=== PATIENT | male | born 1950 | race Caucasian/White ===

== ENCOUNTER 2023-05-19 08:10 | Outpatient (OUT) | payer MEDICARE, OTHER, SELFPAY ==
[2023-05-19 08:53] LABS: Basophils Percent Auto 0.6 % (0.2-2.0); Eosinophils Absolute Auto 0.2 10^3/uL (0.0-0.7); Eosinophils Percent Auto 4.2 % (0.9-7.0); Hematocrit 41.4 % (42.0-54.0); Hemoglobin 14.7 g/dL (14.0-18.0); Immature Granulocytes Abs Auto 0.03 10^3/uL (0.00-0.03); Immature Granulocytes Pct Auto 0.6 % (0.0-0.5); Lymphocytes Absolute Auto 1.4 10^3/uL (1.2-3.8); Lymphocytes Percent Auto 27.7 % (20.5-60.0); Mean Corpuscular HGB Conc 35.5 g/dL (29.9-35.2); Mean Corpuscular Hemoglobin 30.6 pg (25.9-34.0); Mean Corpuscular Volume 86.3 fL (80.0-94.0); Mean Platelet Volume 9.7 fL (9.5-13.5); Monocytes Absolute Auto 0.4 10^3/uL (0.3-0.8); Monocytes Percent Auto 8.9 % (1.7-12.0); Neutrophils Absolute Auto 2.9 10^3/uL (1.4-6.5); Platelet Count 171 10^3/uL (150-450); Red Cell Distribution Width 13.1 % (11.0-15.0)
[2023-05-19 09:28] LABS: Microalbumin Urine Random <1.3 mg/dL (<=30.0)
[2023-05-19 09:31] LABS: Alanine Aminotransferase 53 U/L (16-63); Anion Gap 12.6; BUN Creatinine Ratio 15.6; Carbon Dioxide 25.6 mmol/L (21.0-32.0); Chloride 102 mmol/L (98-107); Chol HDL Ratio 3.2; Cholesterol 193 mg/dL (<=200); Estimated GFR (African America >60 (>=60); Estimated GFR (Non-African Ame >60 (>=60); Glucose 151 mg/dL (74-106); HDL Cholesterol 60 mg/dL (40-60); Potassium 4.2 mmol/L (3.5-5.1); Sodium 136 mmol/L (136-145); Triglycerides 177 mg/dL (<=150); VLDL CHOLESTEROL 35.4 mg/dL
[2023-05-19 09:35] LABS: Estimated Average Glucose 140 mg/dL; Glycohemoglobin A1C 6.5 % (4.5-6.2)
[2023-05-19 09:52] LABS: Prostate Specific Antigen Scrn 2.43 ng/mL (<=4.00)
== END 2023-05-19 08:11 | disposition home or self-care (01) ==
PROVIDERS: PCP Internal Medicine; Visit Provider Internal Medicine
DX: Z79.899 Other long term (current) drug therapy (principal); E11.9 Type 2 diabetes mellitus without complications; I10 Essential (primary) hypertension; E78.01 Familial hypercholesterolemia; Z12.5 Encounter for screening for malignant neoplasm of prostate
CPT/HCPCS: 36415; 80048; 80061; 82043; 83036; 84460; 85025; G0103

== ENCOUNTER 2023-08-18 08:28 | Outpatient (OUT) | payer MEDICARE, OTHER, SELFPAY ==
[2023-08-18 09:29] LABS: Anion Gap 10.7; BUN Creatinine Ratio 16.5; Calcium 8.6 mg/dL (8.5-10.1); Carbon Dioxide 30.4 mmol/L (21.0-32.0); Chloride 99 mmol/L (98-107); Estimated GFR (African America >60 (>=60); Estimated GFR (Non-African Ame >60 (>=60); Glucose 196 mg/dL (74-106); Potassium 4.1 mmol/L (3.5-5.1); Sodium 136 mmol/L (136-145)
== END 2023-08-18 08:29 | disposition home or self-care (01) ==
LOC: LAB 08:29
PROVIDERS: PCP Internal Medicine; Visit Provider Internal Medicine
DX: I10 Essential (primary) hypertension (principal)
CPT/HCPCS: 36415; 80048

== ENCOUNTER 2024-01-30 13:56 | Outpatient (OUT) | payer OTHER, SELFPAY | END 2024-01-30 13:57 | disposition home or self-care (01) | LOC: MN 14:00 | PROVIDERS: PCP Internal Medicine | DX: E11.8 Type 2 diabetes mellitus with unspecified complications (principal) | CPT/HCPCS: G0108 ==

== ENCOUNTER 2024-06-26 08:37 | Outpatient (OUT) | payer OTHER, SELFPAY ==
--- OUTSIDE RECORDS SUMMARY | 2024-06-26 08:41 | XMS_ITS | CCD ---
Author Organization [facility] Care Team Providers Care Turner In Name Role Phone REQUEST, DR RICK LISTED Admitting Unavaila ble REQUEST, DR RICK LISTED Attending Unavaila ble REQUEST, DR RICK LISTED Consulting Unavaila ble FORTINO, DR HORVATH Admitting Unavailable FORTINO, DR HORVATH Attending Unavailable FORTINO, DR HORVATH Primary Care Unavailable FORTINO, DR HORVATH Consulting Unavailable Frank Freitas Unavailable Paloma, Immariam Unavailable DAMON BADILLO Referring Unavailable DAMON BADILLO Primary Care Unavailable DO Frank Freitas Primary Care Provider MD Paloma Immariam Attending Provider Frank Freitas Primary Care Unavailable Asaad, Immariam Attending Unavailable Asaad, Imad Admitting Unavailable Madonna BUCHANAN Attending Unavailable Allergies Allergy Classification Reported Allergen(s) Allergy Type Date of Onset Reaction(s) Facility (1 source) ALLERGIES NOT ON FILE; Translations: [ALLERGIES NOT ON FILE] Propensity to adverse reactions (disorder) [facility] Repository (1 source) Bacitracin; Translations: [bacitracin] Drug Allergy [facility] Repository (1 source) Bee/Wasp/Ant venom; Translations: [Bee Stings] Propensity to adverse reactions (disorder) [facility] Repository Medications Current Medications Medication Drug Class(es) Dates Sig (Normalized) Sig (Original) amLODIPine 5 mg / benazepril hydrochloride 40 mg oral capsule (12 sources) Dihydropyridine Calcium Channel Petros, Angiotensin Converting Enzyme Inhibitor Start: 07-30-2023 take 1 capsule by mouth once daily Amlodipine-Benaze pril Active 1 CAP PO Daily July 30, 2023 12:00am atorvastatin 40 mg oral tablet (12 sources) HMG-CoA Reductase Inhibitor Start: 07-30-2023 take 40 mg by mouth once daily Atorvastatin Active 40 MG PO Daily July 30, 2023 12:00am gabapentin 300 mg oral capsule (12 sources) Anti-epileptic Agent Start: 07-30-2023 take 300 mg by mouth twice daily Gabapentin Active 300 MG PO Twice daily July 30, 2023 12:00am Start: 12-27-2022 take 1 capsule by [facility] every six hours Gabapentin 300 MG 1 capsule Orally qid Dec, Active hydroCHLOROthiazide 25 mg oral tablet (5 sources) Thiazide Diuretic Start: 07-25-2023 take 1 tablet by mouth every twenty-four hours hydroCHLOROthiazide 25 MG 1 tablet in the morning Orally Once a day for 30 days Jul, Active polyethylene glycol 3350 239300 mg / potassium chloride 2970 mg / sodium bicarbonate 6740 mg / sodium chloride 5860 mg / sodium sulfate 16741 mg powder for oral solution (7 sources) Osmotic Laxative Start: 06-28-2023 take 236 g by mouth once daily Golytely 236 GM as directed Orally once daily for 1 days Jun, Active 72 hr scopolamine 0.0139 mg/hr transdermal system (11 sources) Anticholinergic Start: 12-11-2022 Transderm-Scop 1 MG/3DAYS 1 patch to skin behind the ear as needed Transdermal every 72 hours for 7 days Dec, Active Completed/Discontinued Medications Medication Drug Class(es) Dates Sig (Normalized) Sig (Original) meloxicam 15 mg oral tablet (11 sources) Nonsteroidal Anti-inflammatory Drug Meloxicam 15 MG TAKE 1 TABLET DAILY Not-Taking/PRN Suprep Bowel Prep Kit 17.5-3.13-1.6 GM/180ML (11 sources) Start: 02-21-2018 Suprep Bowel Prep Kit 17.5-3.13-1.6 GM/180ML 1 bottle AT 4 PM AND ONE BOTTLE AT 11 PM DAY PRIOR TO COLONOSCOPY Orally Twice a day for 1 day(s) February, Not-Taking/PRN Start: 02-21-2018 Suprep Bowel P rep Kit 17.5-3.13-1.6 GM/180ML 1 bottle AT 4 PM AND ONE BOTTLE AT 11 PM DAY PRIOR TO COLONOSCOPY Orally Twice a day for 1 day(s) February, Not-Taking Problems Problem Classification Problem Date Documented Da te Episodic/Chronic Aortic; peripheral; and visceral artery aneurysms (5 sources) Ascending aorta dilatation; Translations: [Thoracic aortic ectasia] Chronic Diabetes mellitus with complications (15 sources) Type 2 diabetes mellitus; Translations: [Type 2 diabetes mellitus with hyperglycemia] Onset: 07-07-2023 Chronic Diabetes mellitus without complication (12 sources) Type 2 diabetes mellitus without complications; Translations: [Type 2 diabetes mellitus without complication] Onset: 05-15-2022 Chronic Disorders of lipid metabolism (20 sources) Familial hypercholesterolemi a; Translations: [Familial hypercholesterolemi a] Onset: 05-13-2022 Chronic Essential hypertension (20 sources) Essential (primary) hypertension; Translations: [Essential hypertension] Onset: 05-15-2022 Chronic Other nervous system disorders (11 sources) Polyneuropathy; Translations: [Polyneuropathy, unspecified] Chronic Other nervous system disorders (2 sources) Polyneuropathy, unspecified Chronic Other nutritional; endocrine; and metabolic disorders (2 sources) Overweight Episodic Other screening for suspected conditions (not mental disorders or infectious disease) (16 sources) Encounter for screening for malignant neoplasm of prostate; Translations: [Encounter for screening for malignant neoplasm of colon] Onset: 05-15-2022 Episodic Unclassified (1 source) Encounter for screening for malignant neoplasm of colon; Translations: [Encounter for screening for malignant neoplasm of colon] Onset: 07-30-2023 Results Test Name Value Interpretation Reference Range Facility CT CARDIAC SCORING WO IV CON TRASTon 07-07-2023 CT CARDIAC SCORING WO IV CONTRAST Interpreted By: Mp Wilcox, ADDENDUM: NON-CARDIOVASCULAR FINDINGS INCLUDED LUNGS, AIRWAYS AND PLEURA Endotracheal / endobronchial lesion: Negative Nodule: Negative Airspace disease: Negative Pleural effusion: Negative Pneumothorax: Negative Other: No acute or contributory unanticipated findings INCLUDED NON-CARDIOVASCULAR ALISHA AND MEDIASTINUM Adenopathy: Negative Included esophagus: Unremarkable Other: No acute or contributory unanticipated findings INCLUDED BONES: No acute skeletal findings, noting less sensitivity and specificity without dedicated sagittal and coronal reformatted series. INCLUDED CHEST WALL No acute or contributory unanticipated findings INCLUDED UPPER ABDOMEN Borderline to mild fatty metamorphosis of the liver ------- NON-CARDIOVASCULAR IMPRESSION Borderline to mild fatty metamorphosis of the liver NOTE THIS ADDENDUM IS SOLELY FOR INTERPRETATION OF ANATOMY OUTSIDE THE CARDIOVASCULAR SYSTEM. INTERPRETATION OF AND REPORTING OF THE CARDIOVASCULAR STRUCTURES ARE THE SOLE RESPONSIBILITY OF THE DRAMATIC READER SUBMITTING THE ORIGINAL REPORT (NOT THIS ADDENDUM) Signed by: Mp Molinatrev 07/13/2023 1:22 PM -------- ORIGINAL REPORT -------- Dictation workstation: [id number] Interpreted By: Freeman Vo, STUDY: CT CARDIAC SCORING WO IV CONTRAST; 07/07/2023 11:28 am INDICATION: Signs/Symptoms:HYPE RTENSION. COMPARISON: None. ACCESSION NUMBER(S): [id number] ORDERING CLINICIAN: FRANK FREITAS TECHNIQUE: Using prospective ECG gating, CT scan of the coronary arteries was performed without intravenous contrast. Coronary calcium scoring was performed according to the method of Agatston. CT Dose-Length Product (DLP): 51.4 mGy*cm CT Dose Reduction Employed: Yes, prospective gating, iterative reconstruction. FINDINGS: The score and distribution of calcium in the coronary arteries is as follows: LM 0 LAD 729 LCx 0 RCA 339 Total 1068 The visualized ascending thoracic aorta measures 4.2 cm in diameter. The heart is normal in size. No pericardial effusion is present. Mitral annular calcification. The main pulmonary artery, right and left pulmonary artery are normal in size. IMPRESSION: 1. Coronary artery calcium score of 1068*. 2. GALEANO 79th percentile for age, gender, and race in asymptomatic patients. 3. Dilated ascending thoracic aorta 4.2 cm. *Coronary Artery Agatston score Score risk Very low 1-99 Mildly increased 100-299 Moderately increased >300 Moderate to severely increased >800 John et al. JCCT 2016 (http://dx.doi.org/ 10.1016/j.jcct.2016 .11.003) GALEANO Percentile In general, greater than 75th percentile for age, gender, and race is considered to be a higher relative risk and higher lifetime risk condition. Greater than 75th percentile=moderate to severely increased relative risk irrespective of the score. Advise using GALEANO 10 year CHD risk calculator below for better discrimination of risk. GALEANO 10-Year CHD Risk with Coronary Artery Calcification can be calcuate using link below [email or web address]-wv [email or web address]/MESACHDRisk /MesaRiskScore/Risk Score.aspx Haydee aranda al. JACC 2015 (http://dx.doi.org/ 10.1016/j.j acc.2015.08.035) Reading Business Continuity Manager: Dr. Freeman Vo, Date: 07/10/2023 12:28 pm Signed by: Freeman Vo 07/10/2023 12:29 PM Dictation workstation: [id number] [facility] Comment on above: Order Comment: PT WI LL BRING ORDER TO VISIT CBC AUTO DIFFon 05-13-2022 BASO # 0.0 103/ul Normal 0.0-0.1 [facility] Comment on above: Performed By: #### C BC #### [facility] [address] [address] [address] David Lewis Basophils/100 WBC (Bld) 0.6 % Normal 0.2-2.0 [facility] Comment on above: Performed By: #### C BC #### [facility] [address] [address] [address] David Lewis EO # 0.3 103/ul Normal 0.0-0.7 [facility] Comment on above: Performed By: #### C BC #### [facility] [address] [address] [address] David Lewis Eosinophils/100 WBC (Bld) 4.9 % Normal 0.9-7.0 [facility] Comment on above: Performed By: #### C BC #### [facility] [address] [address] [address] David Lewis Erythrocyte distribution width (RBC) [Ratio] 12.9 % Normal 11.0-15.0 [facility] Comment on above: Performed By: #### C BC #### [facility] [address] [address] [address] David Lewis Hematocrit (Bld) [Volume fraction] 39.5 % Critically low 42.0-54.0 [facility] Comment on above: Performed By: #### C BC #### [facility] [address] [address] [address] David Lewis Hemoglobin (Bld) [Mass/Vol] 13.5 g/dL Critically low 14.0-18.0 [facility] Comment on above: Performed By: #### C BC #### [facility] [address] [place] [address] Dr. David Lewis IG # 0.02 10e3/ul Normal 0.00-0.03 [facility] Comment on above: Performed By: #### C BC #### [facility] [address] [place] [address] Dr. David Lewis IG % 0.4 % Normal 0.0-0.5 [facility] Comment on above: Performed By: #### C BC #### [facility] [address] [place] [address] Dr. David Lewis LYMPH # 1.3 103/ul Normal 1.2-3.8 [facility] Comment on above: Performed By: #### C BC #### [facility] [address] [place] [address] Dr. David Lewis Lymphocytes/100 WBC (Bld) 24.8 % Normal 20.5-60.0 [facility] Comment on above: Performed By: #### C BC #### [facility] [address] [place] [address] Dr. David Lewis MANUAL DIFF REQ NO Normal [facility] Comment on above: Performed By: #### C BC #### [facility] [address] [place] [address] Dr. David Lewis MCH (RBC) [Entitic mass] 30.5 pg Normal 25.9-34.0 [facility] Comment on above: Performed By: #### C BC #### [facility] [address] [place] [address] Dr. David Lewis MCHC (RBC) [Mass/Vol] 34.2 g/dL Normal 29.9-35.2 [facility] Comment on above: Performed By: #### C BC #### [facility] [address] [place] [address] Dr. David Lewis MCV (RBC) [Entitic vol] 89.2 fL Normal 80.0-94.0 [facility] Comment on above: Performed By: #### C BC #### [facility] [address] [place], [place] [id number] Dr. David Lewis MONO # 0.4 103/ul Normal 0.3-0.8 [facility] Comment on above: Performed By: #### C BC #### [facility] [address] [place] [address] Dr. David Lewis Monocytes/100 WBC (Bld) 8.5 % Normal 1.7-12.0 [facility] Comment on above: Performed By: #### C BC #### [facility] [address] [place] [address] Dr. David Lewis NEUT # 3.1 103/ul Normal 1.4-6.5 [facility] Comment on above: Performed By: #### C BC #### [facility] [address] [place] [address] Dr. David Lewis Neutrophils/100 WBC (Bld) 60.8 % Normal 43.0-75.0 [facility] Comment on above: Performed By: #### C BC #### [facility] [address] [place] [address] Dr. David Lewis Platelet mean volume (Bld) [Entitic vol] 9.8 fL Normal 9.5-13.5 [facility] Comment on above: Performed By: #### C BC #### [facility] [address] [place] [address] Dr. David Lewis PLT 156 103/ul Normal 150-450 [facility] Comment on above: Performed By: #### C BC #### [facility] [address] [place] [address] Dr. David Lewis RBC 4.43 106/ul Critically low 4.70-6.10 [facility] Comment on above: Performed By: #### C BC #### [facility] [address] [place] [address] Dr. David Lewis WBC 5.1 103/ul Normal 4.0-11.0 [facility] Comment on above: Performed By: #### C BC #### [facility] [address] [place] [address] Dr. David Lewis GLYCOHEMOGLOBIN A1Con 2021 ADA RECOMMENDATION SEE BELOW Normal [facility] Comment on above: Result Comment: ADA RECOMMENDED LIMIT 4.0 - 6.0 ADA THERAPEUTIC TARGET < 7.0 ACTION SUGGESTED > 7.0 Performed By: #### A 1C #### [facility] [address] [place] [address] Dr. David Lewis Glucose [Mass/Vol] 128 mg/dL Normal [facility] Comment on above: Performed By: #### A 1C #### [facility] [address] [address] [address] David Lewis HbA1c (Bld) [Mass fraction] 6.1 % Normal 4.5-6.2 [facility] Comment on above: Performed By: #### A 1C #### [facility] [address] [place] [address] Dr. David Lewis LIPID PROFILEon 05-13-2022 CHOL-HDL RATIO NORM SEE BELOW Normal [facility] Comment on above: Result Comment: 3.3 - 4.4 LOW RISK 4.4 - 7.1 AVERAGE RISK 7.1 - 11.0 MODERATE RISK >11.0 HIGH RISK Performed By: #### B MP, LIPID, ALT #### [facility] [address] [place] [address] Dr. David Lewis Cholesterol [Mass/Vol] 145 mg/dL Normal <=200 [facility] Comment on above: Performed By: #### B MP, LIPID, ALT #### [facility] [address] [address] [address] David Lewis Cholesterol in HDL [Mass/Vol] 48 mg/dL Normal 40-60 [facility] Comment on above: Performed By: #### B MP, LIPID, ALT #### [facility] [address] [address] [address] David Lewis Cholesterol in LDL [Mass/Vol] 78.2 mg/dL Normal [facility] Comment on above: Performed By: #### B MP, LIPID, ALT #### [facility] [address] [place] [address] Dr. David Lewis Cholesterol.total/Cho lesterol in HDL [Mass ratio] 3.0 {ratio} Normal [facility] Comment on above: Performed By: #### B MP, LIPID, ALT #### [facility] [address] [place] [address] Dr. David Lewis HDL NORMAL > or = 60 mg/dl - LOW CARDIOVASCULAR RISK <40 mg/dl - HIGH CARDIOVASCULAR RISK Normal [facility] Comment on above: Performed By: #### B MP, LIPID, ALT #### [facility] [address] [place] [address] Dr. David Lewis LDL CALC NORMAL SEE BELOW Normal [facility] Comment on above: Result Comment: <100 mg/dl OPTIMAL 100 - 129 mg/dl NEAR OR ABOVE OPTIMAL 130 - 159 mg/dl BORDERLINE HIGH 160 - 189 mg/dl HIGH >190 mg/dl VERY HIGH Performed By: #### B MP, LIPID, ALT #### [facility] [address] [place] [address] Dr. David Lewis Triglyceride [Mass/Vol] 94 mg/dL Normal <=150 [facility] Comment on above: Performed By: #### B MP, LIPID, ALT #### [facility] [address] [place] [address] Dr. David Lewis VLDL CALC 18.8 mg/dL Normal [facility] Comment on above: Performed By: #### B MP, LIPID, ALT #### [facility] [address] [place] [address] Dr. David Lewis MICROALBUMIN, RAND URon 08-0 mALB <1.3 Normal <=30.0 [facility] Comment on above: Performed By: #### M ALBR #### [facility] [address] [place] [address] Dr. David Lewis PROF CHEM 8 (BAS METB)on Anion gap [Moles/Vol] 12.3 mmol/L Normal [facility] Comment on above: Performed By: #### B MP, LIPID, ALT #### [facility] [address] [place] [address] Dr. David Lewis Calcium [Mass/Vol] 8.7 mg/dL Normal 8.5-10.1 [facility] Comment on above: Performed By: #### B MP, LIPID, ALT #### [facility] [address] [address] [address] David Lewis Chloride [Moles/Vol] 105 mmol/L Normal 98-107 [facility] Comment on above: Performed By: #### B MP, LIPID, ALT #### [facility] [address] [address] [address] David Lewis CO2 [Moles/Vol] 28.1 mmol/L Normal 21.0-32.0 [facility] Comment on above: Performed By: #### B MP, LIPID, ALT #### [facility] [address] [place] [address] Dr. David Lewis Creatinine [Mass/Vol] 0.92 mg/dL Normal 0.70-1.30 [facility] Comment on above: Performed By: #### B MP, LIPID, ALT #### [facility] [address] [address] [address] David Lewis EGFR-AF JORDANIAN >60 Normal >=60 [facility] Comment on above: Performed By: #### B MP, LIPID, ALT #### [facility] [address] [place] [address] Dr. David Lewis EGFR-NON AF JORDANIAN >60 Normal >=60 [facility] Comment on above: Performed By: #### B MP, LIPID, ALT #### [facility] [address] [address] [address] David Lewis Glucose [Mass/Vol] 138 mg/dL Critically high 74-106 [facility] Comment on above: Performed By: #### B MP, LIPID, ALT #### [facility] [address] [address] [address] David Lewis Potassium [Moles/Vol] 4.4 mmol/L Normal 3.5-5.1 [facility] Comment on above: Performed By: #### B MP, LIPID, ALT #### [facility] [address] [address] [address] David Lewis Sodium [Moles/Vol] 141 mmol/L Normal 136-145 [facility] Comment on above: Performed By: #### B MP, LIPID, ALT #### [facility] [address] [place] [address] Dr. David Lewis Urea nitrogen [Mass/Vol] 18.0 mg/dL Normal 7.0-18.0 [facility] Comment on above: Performed By: #### B MP, LIPID, ALT #### [facility] [address] [place] [address] Dr. David Lewis Urea nitrogen/Creatinine [Mass ratio] 19.6 mg/mg Normal [facility] Comment on above: Performed By: #### B MP, LIPID, ALT #### [facility] [address] [place] [address] Dr. David Lewis [facility] 05-13-2022 ALT [Catalytic activity/Vol] 34 U/L Normal 16-63 [facility] Comment on above: Performed By: #### B MP, LIPID, ALT #### [facility] [address] [place] [address] Dr. David Lewis GLYCOHEMOGLOBIN A1Con 2020 ADA RECOMMENDATION ADA THERAPEUTIC TARGET 6.0 - 7.0 ACTION SUGGESTED > 7.0 Normal [facility] Comment on above: Performed By: #### D ATA1C #### [facility] [address] [place] [address] Dr. David Lewis Glucose [Mass/Vol] 123 mg/dL Normal [facility] Comment on above: Performed By: #### D ATA1C #### [facility] [address] [place] [address] Dr. David Lewis HbA1c (Bld) [Mass fraction] 5.9 % Normal <=6.0 [facility] Comment on above: Performed By: #### D ATA1C #### [facility] [address] [place] [address] Dr. David Lewis Vital Signs Date Time Vital Sign Value Performing Clinician Facility 07-30-2023 12:30-0400 Diastolic blood pressure 91 mm[Hg] DO Frank Freitas Work Phone: [facility] 07-30-2023 12:30-0400 Heart rate 76 /min DO Frank Ball Work Phone: [facility] 07-30-2023 12:30-0400 Respiratory rate 16 /min DO Frank Ball Work Phone: [facility] 07-30-2023 12:30-0400 SaO2% (BldA) [Mass fraction] 97 % DO Frank Ball Work Phone: [facility] 07-30-2023 12:30-0400 Systolic blood pressure 168 mm[Hg] DO Frank Ball Work Phone: [facility] 07-30-2023 11:15-0400 Body height 187.96 cm DO Frank Ball Work Phone: [facility] 07-30-2023 11:15-0400 Body weight 99.79 kg DO Frank Ball Work Phone: [facility] 07-25-2023 09:30-0400 Body height 190.5 cm Frank Ball Other [facility] Other 07-25-2023 09:30-0400 Body mass index (BMI) [Ratio] 29.69 kg/m2 Frank Ball Other [facility] Other 07-25-2023 09:30-0400 Body weight 107.78 kg Frank Ball Other [facility] Other 07-25-2023 09:30-0400 Diastolic blood pressure 84 mm[Hg] Frank Ball Other [facility] Other 07-25-2023 09:30-0400 Respiratory rate 12 /min Frank Ball Other [facility] Other 07-25-2023 09:30-0400 Systolic blood pressure 152 mm[Hg] Frakn Ball Other [facility] Other 05-30-2023 09:30-0400 Body height 190.5 cm Frank Ball Other [facility] Other 05-30-2023 09:30-0400 Body mass index (BMI) [Ratio] 29.57 kg/m2 Frank Ball Other [facility] Other 05-30-2023 09:30-0400 Body weight 107.32 kg Frank Ball Other [facility] Other 05-30-2023 09:30-0400 Diastolic blood pressure 89 mm[Hg] Frank Ball Other [facility] Other 05-30-2023 09:30-0400 Respiratory rate 12 /min Frank Ball Other [facility] Other 05-30-2023 09:30-0400 Systolic blood pressure 167 mm[Hg] Frank Ball Other [facility] Other Encounters Encounter Date Encounter Type Care Provider Facility Start: 06-17-2024 End: 06-17-2024 ambulatory Madonna Sommer DEWAYNE Facility:[facility] Start: 10-26-2023 End: 10-26-2023 ambulatory Frank Ball Other [facility] Other Start: 10-26-2023 Telephone encounter Frank Ball [facility] Start: 08-20-2023 End: 08-20-2023 ambulatory Frank Ball Other [facility] Other Start: 08-20-2023 Telephone encounter Frank Ball [facility] Start: 07-31-2023 End: 07-31-2023 ambulatory Frank Ball Other [facility] Other Start: 07-31-2023 Telephone encounter Frank Ball [facility] Start: 07-30-2023 End: 07-30-2023 ambulatory Frank Ball Facility:[facility] Start: 07-30-2023 End: 07-30-2023 Admission to same day surgery center DO Frank Freitas Work Phone: [facility] [facility] Work Phone: Start: 07-30-2023 End: 07-30-2023 ambulatory DO Frank Freitas Work Phone: [facility] Work Phone: Start: 07-25-2023 End: 07-25-2023 ambulatory Frank Freitas Other [facility] Other Start: 07-25-2023 Office outpatient vi sit 15 minutes Frank Freitas [facility] Start: 07-12-2023 End: 07-12-2023 ambulatory Frank Freitas Other [facility] Other Start: 07-12-2023 Telephone encounter Frank Freitas [facility] Start: 07-07-2023 End: 07-08-2023 ambulatory [facility] Start: 06-28-2023 End: 06-28-2023 ambulatory Frank Freitas Other [facility] Other Start: 06-28-2023 Telephone encounter Frank Freitas [facility] Start: 06-27-2023 End: 06-27-2023 ambulatory Imad Asaad Other [facility] Other Start: 06-27-2023 Telephone encounter Imad Asaad [facility] Start: 06-18-2023 End: 06-18-2023 ambulatory Frank Freitas Other [facility] Other Start: 06-18-2023 Telephone encounter Frank Freitas [facility] Start: 05-30-2023 End: 05-30-2023 ambulatory Frank Ball Other [facility] Other Start: 05-30-2023 Patient encounter procedure Frank Freitas [facility] Start: 05-30-2023 Telephone encounter Frank Freiats [facility] Start: 05-13-2022 End: 05-14-[address] FRANK FREITAS Facility:[facility] Start: 09-08-2021 End: 09-09-[address] RICK LISTED REQUEST Facility:[facility] Procedures Date Procedure Procedure Detail Performing Clinician Start: 07-30-2023 Screening colonoscopy D O Frank Freitas Work Phone: Start: 07-07-2023 CT CARDIAC SCORING W O IV CONTRAST DAMON BADILLO Start: 05-13-[address] RICK L ISTED REQUEST Comment on above: Performed By: #### P [facility] #### [facility] [address] [place] [address] Dr. David Lewis Plan of Treatment Date Care Activity Detail Author Start: 07-30-2023 [facility] Patient Education Hemorrhoids (D C) Diverticulosis (DC) [facility] Work Phone: Immunizations Immunization Date Immunization Notes Care Provider Alejandra donaldson 02-02-2017 diphtheria, tetanus toxoids and acellular pertussis vaccine, unspecified formulation Frank Freitas Other [facility] Other 07-19-2016 zoster vaccine, live Rickerick Freitas Other [facility] Other 01-12-2016 diphtheria, tetanus toxoids and acellular pertussis vaccine, unspecified formulation Frank Freitas Other [facility] Other 01-12-2016 pneumococcal conjuga te vaccine, 13 valent Frank Freitas Other [facility] Other 11-04-2014 pneumococcal polysaccharide vaccine, 23 valent Frank Freitas Other [facility] Other Payers Date Payer Category Payer Unknown [id number] 1961 Medicare [id number] 1961 Self-pay 1959 Unknown [id number] 1950 Unknown [id number] 1950 Unknown [id number] Unknown [id number] [id number] Unknown [id number] Unknown [id number] Social History Date Type Detail Facility Sex Assigned At [facility] [place] Other Start: 07-30-2023 [facility] Start: 1950 Sex Assigned At Male F [facility] Goals Date Patient Goal Desired Activity /State Clinical Notes 05-30-2023 to 08-20-2023 Note Date & Type Note Facility 08-20-2023 Evaluation note Encounter Date Diagnosis Assessment Notes Aug, Primary hypertension (ICD-10 - I10) [facility] Other [id number] [facility]* Encounter Date Diagnosis Assessment Notes Treatment Notes Treatment Clinical Notes Jul, Ascending aorta dilatation (ICD-10 - I77.810) Control BP Continue statin and start ASA Yearly CTA vs Echo Jul, Primary hypertension (ICD-10 - I10) This patient is instructed to consume a healthy, low-fat, low-salt diet. They are also encouraged to continue exercise to achieve/maintain a normal BMI. Patient is instructed on home BP measurements: - rest for 5 minutes w/o talking- positioned w/ feet on floor and arm supported- average best 2/3 readings w/ goal < 135/85 _update office in couple weeks Adding HCTZ Jul, [place] coronary artery calcium score greater than 400 (ICD-10 - R93.1) High risk per CAC score and GALEANO risk formula Continue aggressive primary prevention measures. Discussed referral to Cardiology for opinion on results. He is asymptomatic and easily achieves work > 4METs [facility] Other 10-05-2023 Evaluation note* Encounter Date Diagnosis Assessment Notes Treatment Notes Treatment Clinical Notes Jul, Primary hypertension (ICD-10 - I10) [facility] Other 08-23-2023 Evaluation note* Encounter Date Diagnosis Assessment Notes Treatment Notes Treatment Clinical Notes May, Medicare annual wellness visit, subsequent (ICD-10 - Z00.00) Personalized health advice was given to the beneficiary including a written plan for screenings discussed and provided. Advanced care planning reviewed and/or information given as requested. Additional counseling was provided here today in regards to, [ ]. The above visit was performed by [ ], under direct supervision of [ ]. Document reviewed and amended by provider signed below. May, Type 2 diabetes mellitus with hyperglycemia, without long-term current use of insulin (ICD-10 - E11.65) This patient is following a comprehensive diabetic treatment plan. They are checking their feet daily for calluses and nonhealing ulcers. They are being seen for yearly dilated eye examinations. Goals: SBP less than 130, LDL less than 100, FBS less than 140, AC and A1C less than 7%. They are checking their BS daily, will which are reviewed at the office visit. Continue regular routine monitoring of A1C,] Microalbumin, Dilated eye exam and Foot exam May, Mixed hyperlipidemia (ICD-10 - E78.2) Instructed on diet and exercise with continued statin therapy.Discussed the beneficial effects of lowering cholesterol in reducing the risk for cerebrovascular and cardiovascular disease. May, Primary hypertension (ICD-10 - I10) This patient is instructed to consume a healthy, low-fat, low-salt diet. They are also encouraged to continue exercise to achieve/maintain a normal BMI. Patient is instructed on home BP measurements: - rest for 5 minutes w/o talking- positioned w/ feet on floor and arm supported- average best 2/3 readings w/ goal < 135-85 May, Peripheral polyneuropathy (ICD-10 - G62.9) Inspect feet daily for cuts and calluses.Recommend diabetic shoes and inserts to prevent callus formation.Fall precautions. May, Overweight (ICD-10 - E66.3) This patient has been instructed on a low-fat, high-fiber diet. They are instructed to reduce calories, portion sizes and snacks. It is recommended that they exercise for 30 minutes, 3-5 times weekly. May, Screening PSA (prostate specific antigen) (ICD-10 - Z12.5) Yearly PSA - reviewed results - 2.4, which is < 4 and lower than last years results May, Screening for colon cancer (ICD-10 - Z12.11) Will review his previous scope. He was not aware that he needed this repeated [facility] Other Evaluation noteNo InformationNort [employer] Other Evaluation noteNo assessment information available [facility] Work Phone: History and physical note Author Latonya Dow [facility] July 30, 2023 11:27am Note Date/Time July 30, 2023 1 1:27am [facility] [address] [place] [address] Gastroenterology H&P Signed Patient: Anthony Longo MR#: [id number] : 1950 Acct:[id number] Age/Sex: 73 / M Adm Date: 3 Loc: Room: Type: [facility] Attending Dr: Latonya Dow MD Copies to: DO Latonya Tim MD~ Date of Service: 07/30/2023 HISTORY & PHYSICAL: Patient's history with special attention to the cardiovascular, pulmonary systems and the current problem was reviewed with the patient immediately prior to the procedure. Present medications and doses reviewed in the EMR. Allergies and pertinent laboratory tests were also reviewedat this time in the EMR. The physical examination, as below, was then performed. Indication, assessment and HPI: 73-year-old man with history of colonic polyps here for surveillance colonoscopy Family history of GI malignancy? No PHYSICAL EXAMINATION Mouth and Pharynx : Moist mucus membranes, normal dentition Cardiac: Regular rate, regular rhythm Pulmonary: Clear to auscultation bilaterally, no wheezing Neurological: Alert and oriented x3, no focal deficits noted Abdomen: Abdomen soft, non-tender REVIEW OF SYSTEMS Constitutional: Denies malaise, fevers Cardiovascular: Denies chest pain, palpitations Respiratory: Denies shortness of breath, wheezing Gastrointestinal: Per HPI Genitourinary: Denies dysuria, polyuria Musculoskeletal: Denies joint swelling, joint stiffness Neurological: Denies numbness, tingling Integumentary: Denies rashes, skin lesions Endocrine: Denies fatigue, weight loss Written informed consent obtained from the patient. Risks (including but not limited to perforation, infection, bloating, bleeding, need for emergent surgeryand loss of life), benefits and alternatives explained and questions answered. The patient verbalized understanding. Based on history patient is an appropriate candidate for the procedure. Latonya Dow M.D. Documented By: Latonya Dow MD 07/30/231125 Signed By: <Electronically signed by Latonya Dow MD> 07/30/23 1127 [facility] Work Phone: [facility] Narrative - Reported* Type Description Date Medical History Paresthesia Medical History Type 2 diabetes mellitus without complications Medical History Essential (primary) hypertension Medical History Hyperlipidemia type II Medical History Lumbar spondylosis Medical History Benign prostatic hyp erplasia with lower urinary tract symptoms Surgical History COLONOSCOPY 2017 Hospitalization History SEE SURGICAL [facility] Other History general Narrative - Reported* Type Description Date Medical History Paresthesia Medical History Type 2 diabetes mellitus without complications Medical History Essential (primary) hypertension Medical History Hyperlipidemia type II Medical History Lumbar spondylosis Medical History Benign prostatic hyp erplasia with lower urinary tract symptoms Surgical History COLONOSCOPY 2017 Surgical History Colonoscopy (repeat 5 years) Hospitalization History SEE SURGICAL [facility] Other Hospital Discharge instructions Additional Instructions DISCHARGE INSTRUCTIONS FOR COLONOSCOPY WHAT TO EXPECT: - You may feel full, gassy or cramping after your procedure. In some cases, this may be from a few hours to a day. Walking may help relieve the discomfort. - You should begin to recover from anesthesia within 1 hour of the procedure, however may feel groggy for the next 24 hours. DO's AND DON'Ts: - Call your doctor right away if you have a hard abdomen, severe pain, are passing lots of bright red blood or clots. - Call your doctor if you develop any rashes, hives or difficulty breathing. - Let your doctor know if you have not had a bowel movement by 3 days after your procedure. - If you take 81 mg aspirin for your heart it is safe to resume this medication. - If you take other blood thinner medications your doctor will instruct you when these can safely be resumed. - Do NOT drive for 24 hours. - Do NOT operate machinery such as power tools, lawn mowers, snow blowers, sewing machines, etc. for 24 hours. - Avoid alcoholic beverages and drugs for allergies, nerves, or sleep. - Do NOT stay alone. Do NOT leave your child unattended. - Do NOT make important personal or business decisions or sign any legal documents. - Eat solid foods and drink liquids in smaller amounts than usual until normal appetite returns. If you should experience an upset stomach, liquids high in sugar content (soda, Hugo-Aid, non-acid juices) are recommended. - You can resume normal activities tomorrow. FOLLOW UP & RECOMMENDATIONS: -Notify the doctor if you have any problems. -Repeat colonoscopy in 5 years. -Follow up with PCP. -Office number [phone]. [facility] Work Phone: Summary Purpose Family History No Family History Records Found Relationship Condition Age at Onset Recorded Date/T wesley father Cerebrovascular accident (CVA) Unknown Heart disease Unknown sister Malignant neoplasm of ovary Unknown brother Heart disease Unknown brother Malignant neoplasm of lung Unknown Advance Directives No Advanced Directives Records Found Advance Directive Response Recorded Date/ Time Advance Directives No January 31, 021 7:09am Reason for Referral Reason Mr. Longo is being ref erred for screening colonoscopy Diagnosis 1 Screening for colon cancer (Z12.11) Referral Organization [facility] Fortino ureña Referring Provider First Name Frank Referring Provider Last Name Fortino Referring Provider Specialty Internal Me dicine Referred Organization [facility] Referred Provider Arsalan Esteves Referred Address [address] [place], [place],[address] Referred Provider Specialty Gastroentero logy Referral Priority Routine General Notes Mr. Longo completed a screening colonoscopy w/ polypectomy in 2018. It was recommended that he have a repeat colonoscopy in 5 years. He denies change in appetite, weight or bowel habits. He denies heartburn, dysphagia, melena or hematochezia. Chief Complaint and Reason for Visit Chief Complaint Screening Additional Source Comments (unrecognized sect ion and content) No Status Records FoundNo Status Records FoundNo Status Records FoundNo Status Records Found INFORMATION SOURCE (unrecogn ized section and content) DATE CREATED AUTHOR 05/15/2022 [facility] DATE CREATED AUTHOR AUTHOR'S ORGANIZ ATION 07/13/2023 [facility] DATE CREATED AUTHOR AUTHOR'S ORGANIZ ATION 08/08/2023 [facility] DATE CREATED AUTHOR AUTHOR'S ORGANIZ ATION 06/18/2024 [facility] REASON FOR VISIT (unrecogniz ed section and content) WELLNESSColonoscopyWELLNESSN ew Ordermail ppwBP readingsRefilltest results discussionNo InformationRefillCruise Care Teams (unrecognized sec tion and content) Team Status: Active Member Role Status Dates Frank Freitas DO Primary Care Provider Active Team Status: Inactive Member Role Status Dates Frank Freitas DO Primary Care Provider Active Latonya Dow MD Attending Provider Active FOR RECORDS PERTAINING TO PATIENTS WHO ARE OR HAVE BEEN ENROLLED IN A CHEMICAL DEPENDENCY/SUBSTANCEABUSE PROGRAM, SOME INFORMATION MAY BE OMITTED. This clinical summary was aggregated from multiple sources. Caution should be exercised in using it in the provision of clinical care. This summary normalizes information from multiple sources, and as a consequence, information in this document may materially change the coding, format and clinical context of patient data. In addition, data may be omitted in some cases. CLINICAL DECISIONS SHOULD BE BASED ON THE PRIMARY CLINICAL RECORDS. [employer] provides no warranty or guarantee of the accuracy or completeness of information in this document.
[2024-06-26 08:55] LABS: Basophils Percent Auto 0.3 % (0.2-2.0); Eosinophils Absolute Auto 0.2 10^3/uL (0.0-0.7); Eosinophils Percent Auto 2.8 % (0.9-7.0); Hemoglobin 13.6 g/dL (14.0-18.0); Immature Granulocytes Abs Auto 0.02 10^3/uL (0.00-0.03); Immature Granulocytes Pct Auto 0.3 % (0.0-0.5); Lymphocytes Absolute Auto 1.5 10^3/uL (1.2-3.8); Lymphocytes Percent Auto 23.8 % (20.5-60.0); Mean Corpuscular HGB Conc 32.4 g/dL (29.9-35.2); Mean Corpuscular Hemoglobin 28.5 pg (25.9-34.0); Mean Corpuscular Volume 88.1 fL (80.0-94.0); Mean Platelet Volume 10.3 fL (9.5-13.5); Monocytes Absolute Auto 0.5 10^3/uL (0.3-0.8); Monocytes Percent Auto 8.4 % (1.7-12.0); Neutrophils Absolute Auto 4.2 10^3/uL (1.4-6.5); Neutrophils Percent Auto 64.4 % (43.0-75.0); Platelet Count 171 10^3/uL (150-450); Red Blood Count 4.77 10^6/uL (4.70-6.10); Red Cell Distribution Width 13.9 % (11.0-15.0); White Blood Count 6.5 10^3/uL (4.0-11.0)
[2024-06-26 09:12] LABS: Microalbumin Urine Random <1.3 mg/dL (<=30.0)
[2024-06-26 09:14] LABS: Estimated Average Glucose 117 mg/dL; Glycohemoglobin A1C 5.7 % (4.5-6.2)
[2024-06-26 09:53] LABS: Alanine Aminotransferase 28 U/L (16-63); Albumin Globulin Ratio 1.3; Alkaline Phosphatase 47 U/L (46-116); Anion Gap 11.4; Aspartate Amino Transferase 17 U/L (15-37); Bilirubin Total 0.7 mg/dL (0.2-1.0); Calcium 9.3 mg/dL (8.5-10.1); Carbon Dioxide 29.7 mmol/L (21.0-32.0); Chloride 100 mmol/L (98-107); Chol HDL Ratio 2.9; Cholesterol 139 mg/dL (<=200); Estimated GFR (African America >60 (>=60); Estimated GFR (Non-African Ame >60 (>=60); Globulin 3.2 g/dL; Glucose 121 mg/dL (74-106); HDL Cholesterol 48 mg/dL (40-60); LDL Cholesterol Calculated 68.2 mg/dL; Potassium 4.1 mmol/L (3.5-5.1); Sodium 137 mmol/L (136-145); Total Protein 7.2 g/dL (6.4-8.2); Triglycerides 114 mg/dL (<=150); VLDL CHOLESTEROL 22.8 mg/dL
[2024-06-26 10:05] LABS: Prostate Specific Antigen Scrn 2.22 ng/mL (<=4.00)
== END 2024-06-26 08:38 | disposition home or self-care (01) ==
LOC: LAB 08:37
PROVIDERS: PCP Internal Medicine; Visit Provider Internal Medicine
DX: E11.65 Type 2 diabetes mellitus with hyperglycemia (principal); R93.1 Abnormal findings on diagnostic imaging of heart and coronary circulation; E78.00 Pure hypercholesterolemia, unspecified; I10 Essential (primary) hypertension; Z12.5 Encounter for screening for malignant neoplasm of prostate
CPT/HCPCS: 36415; 80053; 80061; 82043; 83036; 85025; G0103

== ENCOUNTER 2024-07-04 13:32 | Outpatient (OUT) | payer OTHER, SELFPAY ==
--- OUTSIDE RECORDS SUMMARY | 2024-07-04 13:35 | XMS_ITS | CCD ---
Author Organization [facility] Care Team Providers Care Deicer Kit Assembler Name Role Phone REQUEST, DR RICK LISTED [...] Care Provider MD Paloma Immariam Attending Provider [phone] Frank Freitas Primary Care Unavailable Asaad, Immariam Attending Unavailable Asaad, Imad Admitting Unavailable Madonna BUCHANAN Attending Unavailable Allergies Allergy Classification Reported Allergen(s) Allergy Type Date of Onset Reaction(s) Facility (1 source) ALLERGIES NOT ON FILE; Translations: [ALLERGIES NOT ON FILE] Propensity to adverse reactions (disorder) [facility] Repository (1 source) Bacitracin; Translations: [bacitracin] Drug Allergy [facility] Repository (1 source) Bee/Wasp/Ant venom; Translations: [Bee Stings] Propensity to adverse reactions (disorder) [facility] Repository Medications Current Medications Medication Drug Class(es) [...] 12:00am Start: 12-27-2022 take 1 capsule by [facility] every six hours Gabapentin 300 MG 1 capsule Orally qid Dec, Active hydroCHLOROthiazide 25 mg oral tablet (5 sources) Thiazide Diuretic Start: 07-25-2023 take 1 tablet by mouth every twenty-four hours hydroCHLOROthiazide 25 MG 1 tablet in the morning Orally Once a day for 30 days Jul, Active polyethylene glycol 3350 335172 mg / potassium chloride 2970 mg / sodium bicarbonate 6740 mg / sodium chloride 5860 mg / sodium sulfate 22321 mg powder for oral solution (7 sources) [...] STRUCTURES ARE THE SOLE RESPONSIBILITY OF THE MANAGER STUDY SUBMITTING THE ORIGINAL REPORT (NOT THIS ADDENDUM) Signed by: Mp Molinatrev 07/13/2023 1:22 PM -------- ORIGINAL REPORT -------- Dictation workstation: [id number] Interpreted By: Freeman Vo, STUDY: CT CARDIAC SCORING WO IV CONTRAST; 07/07/2023 11:28 am INDICATION: Signs/Symptoms:HYPE RTENSION. COMPARISON: None. ACCESSION NUMBER(S): [id number] ORDERING CLINICIAN: FRANK FREITAS TECHNIQUE: Using prospective [...] Calcification can be calcuate using link below [email or web address]://www.galeano-ks lbi.org/MESACHDRisk /MesaRiskScore/Risk Score.aspx Haydee aranda al. JACC 2015 (http://dx.doi.org/ 10.1016/j.j acc.2015.08.035) Reading Manager Corporate Marketing: Dr. Freeman Vo, Date: 07/10/2023 12:28 pm Signed by: Freeman Vo 07/10/2023 12:29 PM Dictation workstation: [id number] [facility] Comment on above: Order Comment: PT WI LL BRING ORDER TO VISIT CBC AUTO DIFFon 05-13-2022 BASO # 0.0 103/ul Normal 0.0-0.1 [facility] Comment on above: Performed By: #### C BC #### [facility] [address] [address] [address] David Lewis Basophils/100 WBC (Bld) 0.6 % Normal 0.2-2.0 [facility] Comment on above: Performed By: #### C BC #### [facility] [address] [address] [address] David Lewis EO # 0.3 103/ul Normal 0.0-0.7 [facility] Comment on above: Performed By: #### C BC #### [facility] [address] [address] [address] David Lewis Eosinophils/100 WBC (Bld) 4.9 % Normal 0.9-7.0 [facility] Comment on above: Performed By: #### C BC #### [facility] [address] [address] [address] David Lewis Erythrocyte distribution width (RBC) [Ratio] 12.9 % Normal 11.0-15.0 [facility] Comment on above: Performed By: #### C BC #### [facility] [address] [address] [address] David Lewis Hematocrit (Bld) [Volume fraction] 39.5 % Critically low 42.0-54.0 [facility] Comment on above: Performed By: #### C BC #### [facility] [address] [address] [address] David Lewis Hemoglobin (Bld) [Mass/Vol] 13.5 g/dL Critically low 14.0-18.0 [facility] Comment on above: Performed By: #### C BC #### [facility] [address] [place] [address] Dr. David Lewis IG # 0.02 10e3/ul Normal 0.00-0.03 [facility] Comment on above: Performed By: #### C BC #### [facility] [address] [place] [address] Dr. David Lewis IG % 0.4 % Normal 0.0-0.5 [facility] Comment on above: Performed By: #### C BC #### [facility] [address] [place] [address] Dr. David Lewis LYMPH # 1.3 103/ul Normal 1.2-3.8 [facility] Comment on above: Performed By: #### C BC #### [facility] [address] [place] [address] Dr. David Lewis Lymphocytes/100 WBC (Bld) 24.8 % Normal 20.5-60.0 [facility] Comment on above: Performed By: #### C BC #### [facility] [address] [place] [address] Dr. David Lewis MANUAL DIFF REQ NO Normal [facility] Comment on above: Performed By: #### C BC #### [facility] [address] [place] [address] Dr. David Lewis MCH (RBC) [Entitic mass] 30.5 pg Normal 25.9-34.0 [facility] Comment on above: Performed By: #### C BC #### [facility] [address] [place] [address] Dr. David Lewis MCHC (RBC) [Mass/Vol] 34.2 g/dL Normal 29.9-35.2 [facility] Comment on above: Performed By: #### C BC #### [facility] [address] [place] [address] Dr. David Lewis MCV (RBC) [Entitic vol] 89.2 fL Normal 80.0-94.0 [facility] Comment on above: Performed By: #### C BC #### [facility] [address] [place], [place] [id number] Dr. David Lewis MONO # 0.4 103/ul Normal 0.3-0.8 [facility] Comment on above: Performed By: #### C BC #### [facility] [address] [place] [address] Dr. David Lewis Monocytes/100 WBC (Bld) 8.5 % Normal 1.7-12.0 [facility] Comment on above: Performed By: #### C BC #### [facility] [address] [place] [address] Dr. David Lewis NEUT # 3.1 103/ul Normal 1.4-6.5 [facility] Comment on above: Performed By: #### C BC #### [facility] [address] [place] [address] Dr. David Lewis Neutrophils/100 WBC (Bld) 60.8 % Normal 43.0-75.0 [facility] Comment on above: Performed By: #### C BC #### [facility] [address] [place] [address] Dr. David Lewis Platelet mean volume (Bld) [Entitic vol] 9.8 fL Normal 9.5-13.5 [facility] Comment on above: Performed By: #### C BC #### [facility] [address] [place] [address] Dr. David Lewis PLT 156 103/ul Normal 150-450 [facility] Comment on above: Performed By: #### C BC #### [facility] [address] [place] [address] Dr. David Lewis RBC 4.43 106/ul Critically low 4.70-6.10 [facility] Comment on above: Performed By: #### C BC #### [facility] [address] [place] [address] Dr. David Lewis WBC 5.1 103/ul Normal 4.0-11.0 [facility] Comment on above: Performed By: #### C BC #### [facility] [address] [place] [address] Dr. David Lewis GLYCOHEMOGLOBIN A1Con 2021 ADA RECOMMENDATION SEE BELOW Normal [facility] Comment on above: Result Comment: ADA RECOMMENDED LIMIT 4.0 - 6.0 ADA THERAPEUTIC TARGET < 7.0 ACTION SUGGESTED > 7.0 Performed By: #### A 1C #### [facility] [address] [place] [address] Dr. David Lewis Glucose [Mass/Vol] 128 mg/dL Normal [facility] Comment on above: Performed By: #### A 1C #### [facility] [address] [address] [address] David Lewis HbA1c (Bld) [Mass fraction] 6.1 % Normal 4.5-6.2 [facility] Comment on above: Performed By: #### A 1C #### [facility] [address] [place] [address] Dr. David Lewis LIPID PROFILEon 05-13-2022 CHOL-HDL RATIO NORM SEE BELOW Normal [facility] Comment on above: Result Comment: 3.3 - 4.4 LOW RISK 4.4 - 7.1 AVERAGE RISK 7.1 - 11.0 MODERATE RISK >11.0 HIGH RISK Performed By: #### B MP, LIPID, ALT #### [facility] [address] [place] [address] Dr. David Lewis Cholesterol [Mass/Vol] 145 mg/dL Normal <=200 [facility] Comment on above: Performed By: #### B MP, LIPID, ALT #### [facility] [address] [address] [address] David Lewis Cholesterol in HDL [Mass/Vol] 48 mg/dL Normal 40-60 [facility] Comment on above: Performed By: #### B MP, LIPID, ALT #### [facility] [address] [address] [address] David Lewis Cholesterol in LDL [Mass/Vol] 78.2 mg/dL Normal [facility] Comment on above: Performed By: #### B MP, LIPID, ALT #### [facility] [address] [place] [address] Dr. David Lewis Cholesterol.total/Cho lesterol in HDL [Mass ratio] 3.0 {ratio} Normal [facility] Comment on above: Performed By: #### B MP, LIPID, ALT #### [facility] [address] [place] [address] Dr. David Lewis HDL NORMAL > or = 60 mg/dl - LOW CARDIOVASCULAR RISK <40 mg/dl - HIGH CARDIOVASCULAR RISK Normal [facility] Comment on above: Performed By: #### B MP, LIPID, ALT #### [facility] [address] [place] [address] Dr. David Lewis LDL CALC NORMAL SEE BELOW Normal [facility] Comment on above: Result Comment: <100 mg/dl OPTIMAL 100 - 129 mg/dl NEAR OR ABOVE OPTIMAL 130 - 159 mg/dl BORDERLINE HIGH 160 - 189 mg/dl HIGH >190 mg/dl VERY HIGH Performed By: #### B MP, LIPID, ALT #### [facility] [address] [place] [address] Dr. David Lewis Triglyceride [Mass/Vol] 94 mg/dL Normal <=150 [facility] Comment on above: Performed By: #### B MP, LIPID, ALT #### [facility] [address] [place] [address] Dr. David Lewis VLDL CALC 18.8 mg/dL Normal [facility] Comment on above: Performed By: #### B MP, LIPID, ALT #### [facility] [address] [place] [address] Dr. David Lewis MICROALBUMIN, RAND URon 08-0 mALB <1.3 Normal <=30.0 [facility] Comment on above: Performed By: #### M ALBR #### [facility] [address] [place] [address] Dr. David Lewis PROF CHEM 8 (BAS METB)on Anion gap [Moles/Vol] 12.3 mmol/L Normal [facility] Comment on above: Performed By: #### B MP, LIPID, ALT #### [facility] [address] [place] [address] Dr. David Lewis Calcium [Mass/Vol] 8.7 mg/dL Normal 8.5-10.1 [facility] Comment on above: Performed By: #### B MP, LIPID, ALT #### [facility] [address] [address] [address] David Lewis Chloride [Moles/Vol] 105 mmol/L Normal 98-107 [facility] Comment on above: Performed By: #### B MP, LIPID, ALT #### [facility] [address] [address] [address] David Lewis CO2 [Moles/Vol] 28.1 mmol/L Normal 21.0-32.0 [facility] Comment on above: Performed By: #### B MP, LIPID, ALT #### [facility] [address] [place] [address] Dr. David Lewis Creatinine [Mass/Vol] 0.92 mg/dL Normal 0.70-1.30 [facility] Comment on above: Performed By: #### B MP, LIPID, ALT #### [facility] [address] [address] [address] David Lewis EGFR-AF SPANISH >60 Normal >=60 [facility] Comment on above: Performed By: #### B MP, LIPID, ALT #### [facility] [address] [place] [address] Dr. David Lewis EGFR-NON AF SPANISH >60 Normal >=60 [facility] Comment on above: Performed By: #### B MP, LIPID, ALT #### [facility] [address] [address] [address] David Lewis Glucose [Mass/Vol] 138 mg/dL Critically high 74-106 [facility] Comment on above: Performed By: #### B MP, LIPID, ALT #### [facility] [address] [address] [address] David Lewis Potassium [Moles/Vol] 4.4 mmol/L Normal 3.5-5.1 [facility] Comment on above: Performed By: #### B MP, LIPID, ALT #### [facility] [address] [address] [address] David Lewis Sodium [Moles/Vol] 141 mmol/L Normal 136-145 [facility] Comment on above: Performed By: #### B MP, LIPID, ALT #### [facility] [address] [place] [address] Dr. David Lewis Urea nitrogen [Mass/Vol] 18.0 mg/dL Normal 7.0-18.0 [facility] Comment on above: Performed By: #### B MP, LIPID, ALT #### [facility] [address] [place] [address] Dr. David Lewis Urea nitrogen/Creatinine [Mass ratio] 19.6 mg/mg Normal [facility] Comment on above: Performed By: #### B MP, LIPID, ALT #### [facility] [address] [place] [address] Dr. David Lewis [facility] 05-13-2022 ALT [Catalytic activity/Vol] 34 U/L Normal 16-63 [facility] Comment on above: Performed By: #### B MP, LIPID, ALT #### [facility] [address] [place] [address] Dr. David Lewis GLYCOHEMOGLOBIN A1Con 2020 ADA RECOMMENDATION ADA THERAPEUTIC TARGET 6.0 - 7.0 ACTION SUGGESTED > 7.0 Normal [facility] Comment on above: Performed By: #### D ATA1C #### [facility] [address] [place] [address] Dr. David Lewis Glucose [Mass/Vol] 123 mg/dL Normal [facility] Comment on above: Performed By: #### D ATA1C #### [facility] [address] [place] [address] Dr. David Lewis HbA1c (Bld) [Mass fraction] 5.9 % Normal <=6.0 [facility] Comment on above: Performed By: #### D ATA1C #### [facility] [address] [place] [address] Dr. David Lewis Vital Signs Date Time Vital Sign Value Performing Clinician Facility 07-30-2023 12:30-0400 Diastolic blood pressure 91 mm[Hg] DO Frank Freitas Work Phone: [facility] 07-30-2023 12:30-0400 Heart rate 76 /min DO Frank Ball Work Phone: [facility] 07-30-2023 12:30-0400 Respiratory rate 16 /min DO Frank Ball Work Phone: [facility] 07-30-2023 12:30-0400 SaO2% (BldA) [Mass fraction] 97 % DO Frank Ball Work Phone: [facility] 07-30-2023 12:30-0400 Systolic blood pressure 168 mm[Hg] DO Frank Ball Work Phone: [facility] 07-30-2023 11:15-0400 Body height 187.96 cm DO Frank Ball Work Phone: [facility] 07-30-2023 11:15-0400 Body weight 99.79 kg DO Frank Ball Work Phone: [facility] 07-25-2023 09:30-0400 Body height 190.5 cm Frank Ball Other [employer] [facility] [employer] Other 07-25-2023 09:30-0400 Body mass index (BMI) [Ratio] 29.69 kg/m2 Frank Ball Other [employer] Other 07-25-2023 09:30-0400 Body weight 107.78 kg Frank Ball Other [employer] Other 07-25-2023 09:30-0400 Diastolic blood pressure 84 mm[Hg] Frank Ball Other [employer] Other 07-25-2023 09:30-0400 Respiratory rate 12 /min Frank Ball Other [employer] Other 07-25-2023 09:30-0400 Systolic blood pressure 152 mm[Hg] Frank Ball Other [employer] Other 05-30-2023 09:30-0400 Body height 190.5 cm Frank Ball Other [employer] Other 05-30-2023 09:30-0400 Body mass index (BMI) [Ratio] 29.57 kg/m2 Frank Ball Other [employer] Other 05-30-2023 09:30-0400 Body weight 107.32 kg Frank Ball Other [employer] Other 05-30-2023 09:30-0400 Diastolic blood pressure 89 mm[Hg] Frank Ball Other [employer] Other 05-30-2023 09:30-0400 Respiratory rate 12 /min Frank Ball Other [employer] Other 05-30-2023 09:30-0400 Systolic blood pressure 167 mm[Hg] Frank Ball Other [employer] Other Encounters Encounter Date Encounter Type Care Provider Facility Start: 06-17-2024 End: 06-17-2024 ambulatory Madonna Sommer DEWAYNE Facility:[facility] Start: 10-26-2023 End: 10-26-2023 ambulatory Frank Ball Other [employer] Other Start: 10-26-2023 Telephone encounter Frank Ball [facility] Start: 08-20-2023 End: 08-20-2023 ambulatory Frank Ball Other [employer] Other Start: 08-20-2023 Telephone encounter Frank Ball [facility] Start: 07-31-2023 End: 07-31-2023 ambulatory Frank Ball Other [employer] Other Start: 07-31-2023 Telephone encounter Frank Ball [facility] Start: 07-30-2023 End: 07-30-2023 ambulatory Frank Ball Facility:[facility] Start: 07-30-2023 End: 07-30-2023 Admission to same day surgery center DO Frank Freitas Work Phone: [facility] Work Phone: Start: 07-30-2023 End: 07-30-2023 ambulatory DO Frank Freitas Work Phone: [facility] Work Phone: Start: 07-25-2023 End: 07-25-2023 ambulatory Frank Freitas Other [employer] Other Start: 07-25-2023 Office outpatient vi sit 15 minutes Frank Freitas [facility] Start: 07-12-2023 End: 07-12-2023 ambulatory Frank Freitas Other [employer] Other Start: 07-12-2023 Telephone encounter Frank Freitas [facility] Start: 07-07-2023 End: 07-08-2023 ambulatory [facility] Start: 06-28-2023 End: 06-28-2023 ambulatory Frank Freitas Other [employer] Other Start: 06-28-2023 Telephone encounter Frank Freitas [facility] Start: 06-27-2023 End: 06-27-2023 ambulatory Imad Asaad Other [employer] Other Start: 06-27-2023 Telephone encounter Imad Asaad [facility] Start: 06-18-2023 End: 06-18-2023 ambulatory Frank Freitas Other [employer] Other Start: 06-18-2023 Telephone encounter Frank Freitas [facility] Start: 05-30-2023 End: 05-30-2023 ambulatory Frank Ball Other [employer] Other Start: 05-30-2023 Patient encounter procedure Frank Freitas [facility] Start: 05-30-2023 Telephone encounter Frank Freitas [facility] Start: 05-13-2022 End: 05-14-[address] FRANK FREITAS Facility:[facility] Start: 09-08-2021 End: 09-09-[address] RICK LISTED REQUEST Facility:[facility] Procedures Date Procedure Procedure Detail Performing Clinician Start: 07-30-2023 Screening colonoscopy D O Frank Freitas Work Phone: Start: 07-07-2023 CT CARDIAC SCORING W O IV CONTRAST DAMON BADILLO Start: 05-13-[address] RICK L ISTED REQUEST Comment on above: Performed By: #### [facility] #### [facility] [address] [place] [address] Dr. David Lewis Plan of Treatment Date Care Activity Detail Author Start: 07-30-2023 [facility] Patient Education Hemorrhoids (D C) Diverticulosis (DC) [place] Work Phone: Immunizations Immunization Date Immunization Notes Care Provider Alejandra donaldson 02-02-2017 diphtheria, tetanus toxoids and acellular pertussis vaccine, unspecified formulation Frank Freitas Other [employer] Other 07-19-2016 zoster vaccine, live Rickerick Freitas Other [employer] Other 01-12-2016 diphtheria, tetanus toxoids and acellular pertussis vaccine, unspecified formulation Frank Freitas Other [employer] Other 01-12-2016 pneumococcal conjuga te vaccine, 13 valent Frank Freitas Other [employer] Other 11-04-2014 pneumococcal polysaccharide vaccine, 23 valent Frank Freitas Other [employer] Other Payers Date Payer Category Payer Unknown [id number] 1961 Medicare [id number] 1961 Self-pay 1961 Unknown [id number] 1950 Unknown [id number] 1950 Unknown [id number] Unknown [id number] [id number] [id number] Unknown [id number] Unknown [id number] Social History Date Type Detail Facility Sex Assigned At [facility] [employer] Other Start: 07[facility]30-2023 [facility] Start: 1950 Sex Assigned At Male [facility] Goals Date Patient Goal Desired Activity /State Clinical Notes 05-30-2023 to 08-20-2023 Note Date & Type Note Facility 08-20-2023 Evaluation note Encounter Date Diagnosis Assessment Notes Aug, Primary hypertension (ICD-10 - I10) [facility] [email or web address] [facility] Other [id number] [facility] Evaluation note* Encounter Date Diagnosis [...] asymptomatic and easily achieves work > 4METs [employer] Other 10-05-2023 Evaluation note* Encounter Date Diagnosis Assessment Notes Treatment Notes Treatment Clinical Notes Jul, Primary hypertension (ICD-10 - I10) [employer] Other 08-23-2023 Evaluation note* Encounter Date Diagnosis [...] not aware that he needed this repeated [employer] Other Evaluation noteNo InformationNort [facility] Other Evaluation noteNo assessment information available [facility] Work Phone: History and physical note Author Latonya Dow [facility] July 30, 2023 11:27am Note Date/Time July 30, 2023 1 1:27am [facility] [address] [place] [address] Gastroenterology H&P Signed Patient: Anthony Longo MR#: [id number] : 1950 Acct:[id number] Age/Sex: 73 / M Adm Date: 3 Loc: Room: Type: [facility] Attending Dr: Latonya Dow MD Copies to: [...] signed by Latonya Dow MD> 07/30/23 1127 [place] Work Phone: [facility] Narrative - Reported* Type Description Date Medical History Paresthesia Medical History Type 2 diabetes mellitus without complications Medical History Essential (primary) hypertension Medical History Hyperlipidemia type II Medical History Lumbar spondylosis Medical History Benign prostatic hyp erplasia with lower urinary tract symptoms Surgical History COLONOSCOPY 2017 Hospitalization History SEE SURGICAL [employer] Other History general Narrative - Reported* Type Description Date Medical History Paresthesia Medical History Type 2 diabetes mellitus without complications Medical History Essential (primary) hypertension Medical History Hyperlipidemia type II Medical History Lumbar spondylosis Medical History Benign prostatic hyp erplasia with lower urinary tract symptoms Surgical History COLONOSCOPY 2017 Surgical History Colonoscopy (repeat 5 years) Hospitalization History SEE SURGICAL [employer] Other Hospital Discharge instructions Additional Instructions DISCHARGE [...] years. -Follow up with PCP. -Office number [phone]. [place] Work Phone: Summary Purpose Family History No [...] Screening for colon cancer (Z12.11) Referral Organization [facility] Fortino ureña Referring Provider First Name Frank Referring Provider Last Name Fortino Referring Provider Specialty Internal Me dicine Referred Organization [place] Referred Provider Arsalan Esteves Referred Address [address] [place], [place],[address] Referred Provider Specialty Gastroentero logy Referral Priority [...] content) DATE CREATED AUTHOR 05/15/2022 [facility] DATE CREATED AUTHOR AUTHOR'S ORGANIZ ATION 07/13/2023 [facility] DATE CREATED AUTHOR AUTHOR'S ORGANIZ ATION 08/08/2023 [facility] DATE CREATED AUTHOR AUTHOR'S ORGANIZ ATION 06/18/2024 [facility] REASON FOR VISIT (unrecogniz ed section and [...] BE BASED ON THE PRIMARY CLINICAL RECORDS. [employer] provides no warranty or guarantee of the accuracy or completeness of information in this document.
--- NOTE | 2024-07-04 13:36 | CT_ITS ---
The [address] [address] Patient Name: AZUCENA LONGO MRN: [id number] date: 1950 Sex: M Assigned Patient Location: CT Current Patient Location: CT Accession/Order Number: [id number] Exam Date: 07/04/2024 13:45 Report Date: 07/04/2024 17:02 At the request of: YULIET MCKEON Procedure: CT angio chest EXAM: CT angiogram of the chest with IV iodinated contrast. 3-D imaging was performed. Dose reduction technique used: Automated exposure control and/or adjustment of the mA and/or kV according to patient size and/or use of iterative reconstruction technique. REASON FOR EXAM: Ascending Aorta Dilatation I77.810 COMPARISON: None FINDINGS: Mildly dilated ascending aorta measuring up to 4.2 cm maximal diameter. Remainder of the thoracic aorta is normal in caliber. No aortic dissection, penetrating atheromatous ulcer or intramural hematoma. No pulmonary emboli. No pneumothorax. No acute airspace opacities. No pleural effusion. No acute fractures. No definite lymphadenopathy in the chest. Mild left apical scarring. 5 mm left apical pulmonary nodule, consider follow-up chest CT in one year. Coronary atherosclerotic calcifications are present. Remainder unremarkable. CT/CT angio chest IMPRESSION: Mildly dilated ascending aorta measuring up to 4.2 cm. Electronically authenticated by: VIANCA ANDERSON Date: 07/04/2024 17:02
== END 2024-07-04 13:33 | disposition home or self-care (01) ==
LOC: CT 13:32
PROVIDERS: PCP Internal Medicine; Visit Provider Internal Medicine
DX: I77.810 Thoracic aortic ectasia (principal)
CPT/HCPCS: 71275; Q9967

== ENCOUNTER 2025-07-03 08:53 | Outpatient (OUT) | payer OTHER, SELFPAY ==
--- OUTSIDE RECORDS SUMMARY | 2025-07-03 09:03 | XMS_ITS | CCD ---
Author Organization [facility] Care Team Providers Care Jewel Staker Name Role Phone REQUEST, DR RICK LISTED Admitting Unavaila ble REQUEST, DR RICK LISTED Attending Unavaila ble REQUEST, DR RICK LISTED Consulting Unavaila ble FORTINO, DR HORVATH Admitting Unavailable FORTINO, DR HORVATH Attending Unavailable FORTINO, DR HORVATH Primary Care Unavailable FORTINO, DR HORVATH Consulting Unavailable Frank Mckeon Unavailable Latonya Dow Unavailable DAMON BADILLO Referring Unavailable DAMON BADILLO Primary Care Unavailable DO Frank Mckeon Primary Care Provider [phone] MD Paloma Immariam Attending Provider Frank Mckeon Primary Care Unavailable AsaadLatonya Attending Unavailable Asaad, Imad Admitting Unavailable DEWAYNEMadonna REYES Attending Unavailable Allergies Allergy Classification Reported Allergen(s) Allergy Type Date of Onset Reaction(s) Facility (1 source) ALLERGIES NOT ON FILE; Translations: [ALLERGIES NOT ON FILE] Propensity to adverse reactions (disorder) [facility] (1 source) Bacitracin; Translations: [bacitracin] Drug Allergy [facility] (1 source) Bee/Wasp/Ant venom; Translations: [Bee Stings] Propensity to adverse reactions (disorder) [facility] Medications Current Medications Medication Drug Class(es) Dates Sig (Normalized) Sig (Original) amLODIPine 5 mg / benazepril hydrochloride 40 mg oral capsule (14 sources) Dihydropyridine Calcium Channel Eptros, Angiotensin Converting Enzyme Inhibitor Start: 07-30-2023 End: 01-10-2024 take 1 capsule by mouth once daily Amlodipine-Benaz epril 5-40 mg capsule Active 1 CAP PO Daily 90 90 January 10, 2024 4:27pm Blood-Glucose Meter (Multiwave Photonicsuch Ultra2 Meter) [facility] (1 source) Start: 01-23-2024 Blood-Glucose Meter (Onetouch Ultra2 Meter) [facility] Active 0 .ROUTE .MEDSUPPLY 1 January 23, 2024 12:00am Use to test home BS qd gabapentin 300 mg oral capsule (16 sources) Anti-epileptic Agent Start: 01-15-2024 End: 01-15-2024 take 1 capsule by mouth four times daily Gabapentin 300 mg capsule Active 300 MG PO Four times daily 120 January 15, 2024 9:43am Start: 07-30-2023 End: 01-15-2024 take 1 capsule by mouth twice daily Gabapentin 300 mg capsule Discontinued 300 MG PO Twice daily 180 January 10, 2024 4:27pm January 15, 2024 8:58am Start: 12-27-2022 take 1 capsule by mo [facility] every six hours Gabapentin 300 MG 1 capsule Orally qid Dec, Active linagliptin 5 mg oral tablet (2 sources) Dipeptidyl Peptidase 4 Inhibitor Start: 01-23-2024 End: 07-06-2024 take 1 tablet by mouth once daily Linagliptin (Tradjenta) 5 mg tablet Active 5 MG PO Daily 90 July 06, 2024 5:58pm metFORMIN hydrochloride 500 mg oral tablet (2 sources) Biguanide Start: 07-06-2024 take 1 tablet by mouth once daily Metformin 500 mg tablet Active 0 .ROUTE .COMPLEX July 06, 2024 5:58pm TAKE 1 TABLET BY MOUTH DAILY Start: 01-23-2024 End: 07-06-2024 take 1 tablet by mouth once daily Metformin 500 mg tablet Discontinued 500 MG PO Daily 30 January 23, 2024 12:00am July 06, 2024 5:58pm polyethylene glycol 3350 889441 mg / potassium chloride 2970 mg / sodium bicarbonate 6740 mg / sodium chloride 5860 mg / sodium sulfate 08830 mg powder for oral solution (7 sources) Osmotic Laxative Start: 06-28-2023 take 236 g by mouth once daily Golytely 236 GM as directed Orally once daily for 1 days Jun, Active rosuvastatin calcium 20 mg oral tablet (2 sources) HMG-CoA Reductase Inhibitor Start: 06-02-2024 take 1 tablet by mouth once daily Rosuvastatin 20 mg tablet Active 0 .ROUTE .COMPLEX 90 June 02, 2024 9:28pm TAKE 1 TABLET BY MOUTH EVERY DAY FOR 30 DAYS Start: 01-24-2024 End: 06-02-2024 take 1 tablet by mouth once daily Rosuvastatin 20 mg tablet Discontinued 20 MG PO Daily January 24, 2024 12:00am June 02, 2024 9:28pm Completed/Discontinued Medications Medication Drug Class(es) Dates Sig (Normalized) Sig (Original) atorvastatin 40 mg oral tablet (13 sources) HMG-CoA Reductase Inhibitor Start: 07-30-20 End: 01-23-20 take 1 tablet by mouth once daily Atorvastatin 40 mg tablet Discontinued 40 MG PO Daily July 30, 2023 12:00am January 23, 2024 1:51pm bempedoic acid 180 mg oral tablet (1 source) Start: 01-23-20 End: 07-02-20 take 1 tablet by mouth once daily Bempedoic Acid (Nexletol) 180 mg tablet Discontinued 180 MG PO Daily January 23, 2024 12:00am July 02, 2024 9:02am hydroCHLOROthiazide 25 mg oral tablet (7 sources) Thiazide Diuretic Start: 07-25-20 End: 03-25-20 take 1 tablet by mouth once daily Hydrochlorothiazide 25 mg tablet Discontinued 25 MG PO Daily 90 90 January 10, 2024 4:28pm March 25, 2024 11:47am meloxicam 15 mg oral tablet (11 sources) Nonsteroidal Anti-inflammatory Drug Meloxicam 15 MG TAKE 1 TABLET DAILY Not-Taking/PRN 72 hr scopolamine 0.0139 mg/hr transdermal system (12 sources) Anticholinergic Start: 01-23-20 End: 07-02-20 Scopolamine Base 1 mg over 3 days patch 3 day Discontinued 1 PATCH TRANSDERML Every 72 hours as needed January 23, 2024 12:00am July 02, 2024 9:02am 1 patch to skin behind the ear Start: 12-11-2022 Transderm-Scop 1 MG/3DAYS 1 patch to skin behind the ear as needed Transdermal every 72 hours for 7 days Dec, Active Suprep Bowel Prep Kit 17.5-3.13-1.6 GM/180ML (11 sources) Start: 02-21-2018 Suprep Bowel P rep Kit [...] Episodic/Chronic Aortic; peripheral; and visceral artery aneurysms (7 sources) Ascending aorta dilatation; Translations: [Thoracic aortic ectasia] Chronic Comment on above: CT chest: 4.2cm - , 06/2024 Diabetes mellitus with complications (17 sources) Type 2 diabetes mellitus; Translations: [Type [...] hypertension; Translations: [Essential hypertension] Onset: 05-15-2022 Chronic Hyperplasia of prostate (1 source) Benign prostatic hyperplasia; Translations: [Benign prostatic hyperplasia with lower urinary tract symptoms] 06-23-2024 Chronic Other nervous system disorders (11 sources) Polyneuropathy; Translations: [Polyneuropathy, unspecified] Chronic Other nervous system disorders (2 sources) Polyneuropathy, unspecified Chronic Other nutritional; endocrine; and metabolic disorders (2 sources) Overweight Episodic Other screening for suspected conditions (not mental disorders or infectious disease) (19 sources) Encounter for screening for malignant neoplasm of prostate; Translations: [Encounter for screening for malignant neoplasm of colon] Onset: 05-15-2022 Episodic Comment on above: PSA:2.57 - 05/2022, 2 .43 - 05/2023, 2.22 - 06/2024 Unclassified (1 source) Encounter for screening for [...] STRUCTURES ARE THE SOLE RESPONSIBILITY OF THE CARD DOFFER SUBMITTING THE ORIGINAL REPORT (NOT THIS ADDENDUM) Signed by: Mp Wilcox 07/13/2023 1:22 PM -------- ORIGINAL REPORT -------- Dictation workstation: [id number] Interpreted By: Freeman oV, STUDY: CT CARDIAC SCORING WO IV CONTRAST; 07/07/2023 11:28 am INDICATION: Signs/Symptoms:HYPE RTENSION. COMPARISON: None. ACCESSION NUMBER(S): [id number] ORDERING CLINICIAN: FRANK MCKEON TECHNIQUE: Using prospective ECG gating, CT scan [...] Calcification can be calcuate using link below [email or web address] Ronda. JACC 2014 (http://dx.doi.org/ 10.1016/j.j acc.2015.08.035) Reading Acquisition Marketing Manager: Dr. Freeman Vo, Date: 07/10/2023 12:28 pm Signed by: Freeman Vo 07/10/2023 12:29 PM Dictation workstation: [id number] [facility] Comment on above: Order Comment: PT WI LL BRING ORDER TO VISIT CBC AUTO DIFFon 05-13-2022 BASO # 0.0 103/ul Normal 0.0-0.1 [facility] Comment on above: Performed By: #### C BC #### [facility] [address] [address] [address] David Lewis Basophils/100 WBC (Bld) 0.6 % Normal 0.2-2.0 [facility] Comment on above: Performed By: #### C BC #### [facility] [address] [address] [address] David Lewis EO # 0.3 103/ul Normal 0.0-0.7 [facility] Comment on above: Performed By: #### C BC #### [facility] [address] [address] [address] David Lewis Eosinophils/100 WBC (Bld) 4.9 % Normal 0.9-7.0 [facility] Comment on above: Performed By: #### C BC #### [facility] [address] [place] [address] Dr. David Lewis Erythrocyte distribution width (RBC) [Ratio] 12.9 % Normal 11.0-15.0 [facility] Comment on above: Performed By: #### C BC #### [facility] [address] [place] [address] Dr. David Lewis Hematocrit (Bld) [Volume fraction] 39.5 % Critically low 42.0-54.0 [facility] Comment on above: Performed By: #### C BC #### [facility] [address] [place] [address] Dr. David Lewis Hemoglobin (Bld) [Mass/Vol] 13.5 g/dL Critically low 14.0-18.0 [facility] Comment on above: Performed By: #### C BC #### [facility] [address] [place] [address] Dr. David Lewis IG # 0.02 10e3/ul Normal 0.00-0.03 [facility] Comment on above: Performed By: #### C BC #### [facility] [address] [place] [address] Dr. David Lewis IG % 0.4 % Normal 0.0-0.5 [facility] Comment on above: Performed By: #### C BC #### [facility] [address] [place] [address] Dr. David Lewis LYMPH # 1.3 103/ul Normal 1.2-3.8 [facility] Comment on above: Performed By: #### C BC #### [facility] [address] [place] [address] Dr. David Lewis Lymphocytes/100 WBC (Bld) 24.8 % Normal 20.5-60.0 [facility] Comment on above: Performed By: #### C BC #### [facility] [address] [place] [address] Dr. David Lewis MANUAL DIFF REQ NO Normal [facility] Comment on above: Performed By: #### C BC #### [facility] [address] [place] [address] Dr. David Lewis MCH (RBC) [Entitic mass] 30.5 pg Normal 25.9-34.0 [facility] Comment on above: Performed By: #### C BC #### [facility] [address] [place] [address] Dr. David Lewis MCHC (RBC) [Mass/Vol] 34.2 g/dL Normal 29.9-35.2 [facility] Comment on above: Performed By: #### C BC #### [facility] [address] [place] [address] Dr. David Lewis MCV (RBC) [Entitic vol] 89.2 fL Normal 80.0-94.0 [facility] Comment on above: Performed By: #### C BC #### [facility] [address] [place] [address] Dr. David Lewis MONO # 0.4 103/ul Normal 0.3-0.8 [facility] Comment on above: Performed By: #### C BC #### [facility] [address] [place] [address] Dr. David Lewis Monocytes/100 WBC (Bld) 8.5 % Normal 1.7-12.0 [facility] Comment on above: Performed By: #### C BC #### [facility] [address] [place] [address] Dr. David Lewis NEUT # 3.1 103/ul Normal 1.4-6.5 [facility] Comment on above: Performed By: #### C BC #### [facility] [address] [place] [address] Dr. David Lewis Neutrophils/100 WBC (Bld) 60.8 % Normal 43.0-75.0 [facility] Comment on above: Performed By: #### C BC #### [facility] [address] [place] [address] Dr. David Lewis Platelet mean volume (Bld) [Entitic vol] 9.8 fL Normal 9.5-13.5 [facility] Comment on above: Performed By: #### C BC #### [facility] [address] [address] [address] David Lewis PLT 156 103/ul Normal 150-450 [facility] Comment on above: Performed By: #### C BC #### [facility] [address] [place] [address] Dr. David Lewis RBC 4.43 106/ul Critically low 4.70-6.10 [facility] Comment on above: Performed By: #### C BC #### [facility] [address] [address] [address] David Lewis WBC 5.1 103/ul Normal 4.0-11.0 [facility] Comment on above: Performed By: #### C BC #### [facility] [address] [place] [address] Dr. David Lewis GLYCOHEMOGLOBIN A1Con 2021 ADA RECOMMENDATION SEE BELOW Normal [facility] Comment on above: Result Comment: ADA RECOMMENDED LIMIT 4.0 - 6.0 ADA THERAPEUTIC TARGET < 7.0 ACTION SUGGESTED > 7.0 Performed By: #### A 1C #### [facility] [address] [place] [address] Dr. David Lewis Glucose [Mass/Vol] 128 mg/dL Normal [facility] Comment on above: Performed By: #### A 1C #### [facility] [address] [place] [address] Dr. David Lewis HbA1c (Bld) [Mass fraction] 6.1 % Normal 4.5-6.2 [facility] Comment on above: Performed By: #### A 1C #### [facility] [address] [place] [address] Dr. David Lewis LIPID PROFILEon 05-13-2022 CHOL-HDL RATIO NORM SEE BELOW Normal [facility] Comment on above: Result Comment: 3.3 - 4.4 LOW RISK 4.4 - 7.1 AVERAGE RISK 7.1 - 11.0 MODERATE RISK >11.0 HIGH RISK Performed By: #### B MP, LIPID, ALT #### [facility] [address] [place] [address] Dr. David Lewis Cholesterol [Mass/Vol] 145 mg/dL Normal <=200 [facility] Comment on above: Performed By: #### B MP, LIPID, ALT #### [facility] [address] [address] [address] David Lewis Cholesterol in HDL [Mass/Vol] 48 mg/dL Normal 40-60 [facility] Comment on above: Performed By: #### B MP, LIPID, ALT #### [facility] [address] [address] [address] David Lewis Cholesterol in LDL [Mass/Vol] 78.2 mg/dL Normal [facility] Comment on above: Performed By: #### B MP, LIPID, ALT #### [facility] [address] [address] [address] David Lewis Cholesterol.total/Cho lesterol in HDL [Mass ratio] 3.0 {ratio} Normal [facility] Comment on above: Performed By: #### B MP, LIPID, ALT #### [facility] [address] [address] [address] David Lewis HDL NORMAL > or = 60 mg/dl - LOW CARDIOVASCULAR RISK <40 mg/dl - HIGH CARDIOVASCULAR RISK Normal [facility] Comment on above: Performed By: #### B MP, LIPID, ALT #### [facility] [address] [address] [address] David Lewis LDL CALC NORMAL SEE BELOW Normal [facility] Comment on above: Result Comment: <100 mg/dl OPTIMAL 100 - 129 mg/dl NEAR OR ABOVE OPTIMAL 130 - 159 mg/dl BORDERLINE HIGH 160 - 189 mg/dl HIGH >190 mg/dl VERY HIGH Performed By: #### B MP, LIPID, ALT #### [facility] [address] [address] [address] David Lewis Triglyceride [Mass/Vol] 94 mg/dL Normal <=150 [facility] Comment on above: Performed By: #### B MP, LIPID, ALT #### [facility] [address] [address] [address] David Lewis VLDL CALC 18.8 mg/dL Normal [facility] Comment on above: Performed By: #### B MP, LIPID, ALT #### [facility] [address] [place] [address] Dr. David Lewis MICROALBUMIN, RAND URon 08-0 mALB <1.3 Normal <=30.0 [facility] Comment on above: Performed By: #### M ALBR #### [facility] [address] [place] [address] Dr. David Lewis PROF CHEM 8 (BAS METB)on Anion gap [Moles/Vol] 12.3 mmol/L Normal [facility] Comment on above: Performed By: #### B MP, LIPID, ALT #### [facility] [address] [place] [address] Dr. David Lewis Calcium [Mass/Vol] 8.7 mg/dL Normal 8.5-10.1 [facility] Comment on above: Performed By: #### B MP, LIPID, ALT #### [facility] [address] [place] [address] Dr. David Lewis Chloride [Moles/Vol] 105 mmol/L Normal 98-107 [facility] Comment on above: Performed By: #### B MP, LIPID, ALT #### [facility] [address] [place] [address] Dr. David Lewis CO2 [Moles/Vol] 28.1 mmol/L Normal 21.0-32.0 [facility] Comment on above: Performed By: #### B MP, LIPID, ALT #### [facility] [address] [place] [address] Dr. David Lewis Creatinine [Mass/Vol] 0.92 mg/dL Normal 0.70-1.30 [facility] Comment on above: Performed By: #### B MP, LIPID, ALT #### [facility] [address] [place] [address] Dr. David Lewis EGFR-AF SUDANESE >60 Normal >=60 [facility] Comment on above: Performed By: #### B MP, LIPID, ALT #### [facility] [address] [place] [address] Dr. David Lewis EGFR-NON AF SUDANESE >60 Normal >=60 [facility] Comment on above: Performed By: #### B MP, LIPID, ALT #### [facility] [address] [place] [address] Dr. David Lewis Glucose [Mass/Vol] 138 mg/dL Critically high 74-106 [facility] Comment on above: Performed By: #### B MP, LIPID, ALT #### [facility] [address] [place] [address] Dr. David Lewis Potassium [Moles/Vol] 4.4 mmol/L Normal 3.5-5.1 [facility] Comment on above: Performed By: #### B MP, LIPID, ALT #### [facility] [address] [place] [address] Dr. David Lewis Sodium [Moles/Vol] 141 mmol/L Normal 136-145 [facility] Comment on above: Performed By: #### B MP, LIPID, ALT #### [facility] [address] [place] [address] Dr. David Lewis Urea nitrogen [Mass/Vol] 18.0 mg/dL Normal 7.0-18.0 [facility] Comment on above: Performed By: #### B MP, LIPID, ALT #### [facility] [address] [place] [address] Dr. David Lewis Urea nitrogen/Creatinine [Mass ratio] 19.6 mg/mg Normal [facility] Comment on above: Performed By: #### B MP, LIPID, ALT #### [facility] [address] [place] [address] Dr. David Lewis SGPTon 05-13-2022 ALT [Catalytic activity/Vol] 34 U/L Normal 16-63 [facility] Comment on above: Performed By: #### B MP, LIPID, ALT #### [facility] [address] [place] [address] Dr. David Lewis GLYCOHEMOGLOBIN A1Con 2020 ADA RECOMMENDATION ADA THERAPEUTIC TARGET 6.0 - 7.0 ACTION SUGGESTED > 7.0 Normal [facility] Comment on above: Performed By: #### D ATA1C #### [facility] [address] [place], [place] [address] Dr. David Lewis Glucose [Mass/Vol] 123 mg/dL Normal [facility] Comment on above: Performed By: #### D ATA1C #### [facility] [address] [place], [place] [address] Dr. David Lewis HbA1c (Bld) [Mass fraction] 5.9 % Normal <=6.0 [facility] Comment on above: Performed By: #### D ATA1C #### [facility] [address] [place], [place] [address] Dr. David Lewis Vital Signs Date Time Vital Sign Value Performing Clinician Facility 02-12-2025 09:57-0400 Body height 187.96 cm [facility] 02-12-2025 09:57-0400 Body mass index (BMI) [Ratio] 29.4 kg/m2 [facility] 02-12-2025 09:57-0400 Body weight 103.92 kg [facility] 02-12-2025 09:57-0400 Diastolic blood pressure 81 mm[Hg] [facility] 02-12-2025 09:57-0400 Heart rate 66 /min [facility] 02-12-2025 09:57-0400 Respiratory rate 12 /min [facility] 02-12-2025 09:57-0400 Systolic blood pressure 150 mm[Hg] [facility] 07-30-2023 12:30-0400 Diastolic blood pressure 91 mm[Hg] DO Frank Ball Work Phone: [facility] 07-30-2023 12:30-0400 Heart rate 76 /min DO Frank Ball Work Phone: [facility] 07-30-2023 12:30-0400 Respiratory rate 16 /min DO Frank Ball Work Phone: [facility] 07-30-2023 12:30-0400 SaO2% (BldA) [Mass fraction] 97 % DO Frank Ball Work Phone: [facility] 07-30-2023 12:30-0400 Systolic blood pressure 168 mm[Hg] DO Frank Ball Work Phone: [facility] 07-30-2023 11:15-0400 Body height 187.96 cm DO Frank Ball Work Phone: [facility] 07-30-2023 11:15-0400 Body weight 99.79 kg DO Frank Ball Work Phone: [facility] 07-25-2023 09:30-0400 Body height 190.5 cm Frank Ball Other [facility] Other 07-25-2023 09:30-0400 Body mass index (BMI) [Ratio] 29.69 kg/m2 Frank Ball Other [facility] Other 07-25-2023 09:30-0400 Body weight 107.78 kg Frank Ball Other [facility] Other 07-25-2023 09:30-0400 Diastolic blood pressure 84 mm[Hg] Frank Ball Other [facility] Other 07-25-2023 09:30-0400 Respiratory rate 12 /min Frank Ball Other [employer] Other 07-25-2023 09:30-0400 Systolic blood pressure 152 mm[Hg] Frank Ball Other [employer] Other 05-30-2023 09:30-0400 Body height 190.5 cm Frank Ball Other [employer] Other 05-30-2023 09:30-0400 Body mass index (BMI) [Ratio] 29.57 kg/m2 Frank Ball Other [employer] Other 05-30-2023 09:30-0400 Body weight 107.32 kg Frank Ball Other [employer] Other 05-30-2023 09:30-0400 Diastolic blood pressure 89 mm[Hg] Frank Mckeon Other [employer] Other 05-30-2023 09:30-0400 Respiratory rate 12 /min Frank Ball Other [employer] Other 05-30-2023 09:30-0400 Systolic blood pressure 167 mm[Hg] Frank Mckeon Other [employer] Other Encounters Encounter Date Encounter Type Care Provider Facility Start: 02-12-2025 End: 02-12-2025 ambulatory [facility] Work Phone: Start: 02-12-2025 End: 02-12-2025 Patient encounter procedure Replaced By [facility] Work Phone: Start: 06-29-2024 Patient encounter procedure [facility] Start: 06-17-2024 End: 06-17-2024 ambulatory Madonna Sommer DEWAYNE Facility:[facility] Start: 10-26-2023 End: 10-26-2023 ambulatory Frank Mckeon Other [employer] Other Start: 10-26-2023 Telephone encounter Frank Ball [facility] Start: 08-20-2023 End: 08-20-2023 ambulatory Frank Ball Other [employer] Other Start: 08-20-2023 Telephone encounter Frank Ball [facility] Start: 07-31-2023 End: 07-31-2023 ambulatory Frank Ball Other [employer] Other Start: 07-31-2023 Telephone encounter Frank Ball [facility] Start: 07-30-2023 End: 07-30-2023 ambulatory Frank Ball Facility:[facility] Start: 07-30-2023 End: 07-30-2023 Admission to same day surgery center DO Frank Mckeon Work Phone: [facility] Work Phone: Start: 07-30-2023 End: 07-30-2023 ambulatory DO Frank Mckeon Work Phone: [facility] Work Phone: Start: 07-25-2023 End: 07-25-2023 ambulatory Frank Mckeon Other [employer] Other Start: 07-25-2023 Office outpatient vi sit 15 minutes Frank Mckeon [facility] Start: 07-12-2023 End: 07-12-2023 ambulatory Frank Mckeon Other [employer] Other Start: 07-12-2023 Telephone encounter Frank Mckeon [facility] Start: 07-07-2023 End: 07-08-2023 ambulatory [facility] Start: 06-28-2023 End: 06-28-2023 ambulatory Frank Mckeon Other [employer] Other Start: 06-28-2023 Telephone encounter Frank Mckeon [facility] Start: 06-27-2023 End: 06-27-2023 ambulatory Imad Asaad Other [employer] Other Start: 06-27-2023 Telephone encounter Imad Asaad [facility] Start: 06-18-2023 End: 06-18-2023 ambulatory Frank Mckeon Other [employer] Other Start: 06-18-2023 Telephone encounter Frank Mckeon [facility] Start: 05-30-2023 End: 05-30-2023 ambulatory Frank Mckeon Other [employer] Other Start: 05-30-2023 Patient encounter procedure Frank Fortino [facility] Start: 05-30-2023 Telephone encounter [facility] Start: 05-13-2022 End: 05-14-[address] FRANK MCKEON Facility:[facility] Start: 09-08-2021 End: 09-09-[address] RICK LISTED REQUEST Facility:[facility] Procedures Date Procedure Procedure Detail Performing Clinician Start: 07-30-2023 Screening colonoscopy D O Frank Mckeon Work Phone: Start: 07-07-2023 CT CARDIAC SCORING W O IV CONTRAST DAMON BADILLO Start: 05-13-[address] RICK L ISTED REQUEST Comment on above: Performed By: #### P [facility] #### [facility] [address] [place] [address] Dr. David Lewis Plan of Treatment Date Care Activity Detail Author Start: 07-30-2023 [facility] Patient Education Hemorrhoids (D C) Diverticulosis (DC) [facility] Work Phone: Immunizations Immunization Date Immunization Notes Care Provider Alejandra [facility]davy 02-02-2017 diphtheria, tetanus toxoids and acellular pertussis vaccine, unspecified formulation Frank Mckeon Other [facility] 07-19-2016 zoster vaccine, live Benjerick Mckeon Other [facility] 01-12-2016 diphtheria, tetanus toxoids and acellular pertussis vaccine, unspecified formulation Frank Mckeon Other [facility] 01-12-2016 pneumococcal conjuga te vaccine, 13 valent Frank Mckeon Other [facility] 11-04-2014 pneumococcal polysaccharide vaccine, 23 valent Frank Mckeon Other [facility] Payers Date Payer Category Payer Unknown [id number] 1961 Medicare [id number] 1959 Self-pay 1959 Unknown [id number] 1950 Unknown [id number] 1950 Unknown [id number] Unknown [id number] Unknown [id number] Unknown [id number] Unknown [facility] Evaluation Services [id number] Social History Date Type Detail Facility Sex Assigned At [facility] Other Start: 07-30-2023 Tobacco smoking stat [facility] Ex-smoker (finding) [facility] Start: 1950 Sex Assigned At Male F [facility] Start: 02-12-2025 Sex Male (finding) [facility] Medical Equipment Procedure Code Equipment Code Equipment Origin al Text Equipment Identifier Dates Blood Sugar Diagnostic (Onetouch Ultra Test) strip Start: 02-08-2024 Lancets (Onetouc h Ultrasoft 2 Lancet) 30 gauge misc Start: 01-23-2024 Blood Sugar Diagnostic (Onetouch Ultra Test) strip Start: 02-08-2024 End: 02-08-2024 Blood Sugar Diagnostic (Onetouch Ultra Test) strip Start: 01-23-2024 End: 02-08-2024 Goals Date Patient Goal Desired Activity /State Clinical Notes 05-30-2023 to 08-20-2023 Note Date & Type Note Facility 08-20-2023 Evaluation note Encounter Date Diagnosis Assessment Notes Aug, Primary hypertension (ICD-10 - I10) [facility] Other [id number] [facility]* Encounter Date Diagnosis [...] asymptomatic and easily achieves work > 4METs [employer] Other 10-05-2023 Evaluation note* Encounter Date Diagnosis Assessment Notes Treatment Notes Treatment Clinical Notes Jul, Primary hypertension (ICD-10 - I10) [facility] Other 08-23-2023 Evaluation note* Encounter Date Diagnosis [...] not aware that he needed this repeated [facility] [employer] Other [facility] [employer] Other Evaluation noteNo assessment information available [facility] Work Phone: Evaluation note* Diagnosis Onset Date Resolution Status Admit Date Ascending aorta dilatation acute February 12, 2025 9:50am Elevated cholesterol acute February 12, 2025 9:50am Elevated coronary artery charo cium score acute February 12, 2025 9: 50am Hypertension acute February 12 9:50am Type 2 diabetes mellitus wit h hyperglycemia acute February 12, 2025 9: 50am [facility] Work Phone: History and physical note Author Latonya Dow [facility] July 30, 2023 11:27am Note Date/Time July 30, 2023 1 1:27am [facility] [address] [place] [address] Gastroenterology H&P Signed Patient: Anthony Castillo MR#: [id number] : 1950 Acct:[id number] Age/Sex: 73 / M Adm Date: 3 Loc: Room: Type: [facility] Attending Dr: Latonya Dow MD Copies to: Farnk Mckeon,DO Latonya Dow MD~ Date of Service: 07/30/2023 HISTORY & [...] Dow M.D. Documented By: Latonya Dow MD 07/30/23 1126 Signed By: <Electronically signed by Latonya Dow MD> 07/30/23 1127 [facility] Work Phone: History general Narrative - Reported* Type Description Date Medical History Paresthesia Medical History Type 2 diabetes mellitus without complications Medical History Essential (primary) hypertension Medical History Hyperlipidemia type II Medical History Lumbar spondylosis Medical History Benign prostatic hyp erplasia with lower urinary tract symptoms Surgical History COLONOSCOPY 2012, 2018 Hospitalization History SEE SURGICAL HX [facility] Other History general Narrative - Reported* Type Description Date Medical History Paresthesia Medical History Type 2 diabetes mellitus without complications Medical History Essential (primary) hypertension Medical History Hyperlipidemia type II Medical History Lumbar spondylosis Medical History Benign prostatic hyp erplasia with lower urinary tract symptoms Surgical History COLONOSCOPY 2012, 2017 Surgical History Colonoscopy (repeat 5 years) Hospitalization History SEE SURGICAL HX [facility] [employer] Other Hospital Discharge instructions Additional Instructions DISCHARGE [...] years. -Follow up with PCP. -Office number [phone]. [facility] Work Phone: Summary Purpose Family History Relationship Condition Age at Onset Recorded Date/[place] father Cerebrovascular accident (CVA) Unknown Heart disease Unknown sister Malignant neoplasm of ovary Unknown brother Heart disease Unknown brother Malignant neoplasm of lung Unknown Relationship Condition Age at Onset Recorded Date/T [place] sister Malignant neoplasm of ovary Unknown brother Heart disease Unknown Malignant neoplasm of lung Unknown Malignant neoplasm Unknown father History of stroke Unknown Heart disease Unknown Cerebrovascular accident (CVA) Unknown Advance Directives Advance Directive Response Recorded Date/ Time Advance Directives No January 31, 021 7:09am Reason for Referral Reason Mr. Castillo is being ref erred for screening colonoscopy Diagnosis 1 Screening for colon cancer (Z12.11) Referral Organization [facility] adelita Referring Provider First Name Frank Referring Provider Last Name Fortino Referring Provider Specialty Internal Me dicine Referred Organization [facility] Referred Provider Arsalan Esteves Referred Address [address] [place], [place],[address] Referred Provider Specialty Gastroentero logy Referral Priority Routine General Notes Mr. Castillo completed a screening colonoscopy w/ polypectomy in 2018. It was recommended that he have a repeat colonoscopy in 5 years. He denies change in appetite, weight or bowel habits. He denies heartburn, dysphagia, melena or hematochezia. Chief Complaint and Reason for Visit Chief Complaint Screening Chief Complaint Admit Date Diabetes Check Up/Ankle Wound Check Up [facility] 2024 9:50am Reason for Visit Admit Date Ascending aorta dilatation February 12, 2025 9:50am Elevated cholesterol February 12, 2025 9:50a m Elevated coronary artery calcium score [facility] 2024 9:50am Hypertension February 12, 2025 9:50am Type 2 diabetes mellitus with hyperglyce maddison February 12, 2025 9:50am Additional Source Comments (unrecognized sect ion and content) No Status Records FoundNo Status Records FoundNo Status Records FoundNo Status Records Found INFORMATION SOURCE (unrecogn ized section and content) DATE CREATED AUTHOR 05/15/2022 [facility] DATE CREATED AUTHOR AUTHOR'S ORGANIZ ATION 07/13/2023 [facility] DATE CREATED AUTHOR AUTHOR'S ORGANIZ ATION 08/08/2023 [facility] DATE CREATED AUTHOR AUTHOR'S ORGANIZ ATION 06/18/2024 [facility] REASON FOR VISIT (unrecogniz ed section and content) WELLNESSColonoscopyWELLNESSN ew Ordermail ppwBP readingsRefilltest results discussionNo InformationRefillCruise Care Teams (unrecognized sec tion and content) Team Status: Active Member Role Status Dates Frank Mckeon DO Primary Care Provider Active Team Status: Inactive Member Role Status Dates Frank Mckeon , Primary Care Provider Active Latonya Dow MD Attending Provider Active Team Status: Inactive Member Role Status Dates Frank Mckeon , Primary Care Provide r, Attending Provider Active Start: February 12, 2025 End: February 12, 2025 Goals (unrecognized section and content) Goals may be documented in a n alternate section FOR RECORDS PERTAINING TO PATIENTS WHO ARE [...] BE BASED ON THE PRIMARY CLINICAL RECORDS. [facility] [employer] [facility]. provides no warranty or guarantee of the accuracy or completeness of information in this document.
--- OUTSIDE RECORDS SUMMARY | 2025-07-03 09:03 | XMS_ITS | Clinical Summary ---
Author Organization [facility] Address [address] 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 Name Role Phone Unavailable Primary Care Provider Unavailabl e Social History Tobacco Use Types Packs/Day Years Used Date Smoking Tobacco: Never Assessed Sex and Gender Information Value Date Recorded Sex Assigned at Not on file Legal Sex Male 11:39 AM EDT Gender Identity Not on file Sexual Orientation Not on file Plan of Treatment Health Maintenance Due Date Last Done Comments Lipid Panel 1950 Medicare Annual Wellness Vis it (AWV) 1950 Hepatitis C Screening 1966 Pneumococcal Vaccine (1 of 1 - PCV) 1998 Zoster Vaccines (2 of 3) 01/06/2015 11/11/2014 RSV High Risk: (Elderly (60+ ) or Population) (1 - 1-dose 75+ series) 2023 COVID-19 Vaccine (1 - 2023-2 5 season) 2025 Influenza Vaccine (#1) 2025 DTaP/Tdap/Td Vaccines (3 - T d or Tdap) 06/12/2028 06/12/2018, 11/18/2015 HIB Vaccines Aged Out No longer eligi ble based on patient's age to complete this topic HPV Vaccines Aged Out No longer eligi ble based on patient's age to complete this topic Hepatitis A Vaccines Aged Out No long er eligible based on patient's age to complete this topic Hepatitis B Vaccines Aged Out No long er eligible based on patient's age to complete this topic IPV Vaccines Aged Out No longer eligi ble based on patient's age to complete this topic Meningococcal Vaccine Aged Out No power raiza eligible based on patient's age to complete this topic Rotavirus Vaccines Aged Out No longer eligible based on patient's age to complete this topic Insurance MEDICARE PART A AND B [facility]
[2025-07-03 09:47] LABS: Hematocrit 42.8 % (42.0-54.0); Hemoglobin 14.5 g/dL (14.0-18.0); Immature Granulocytes Abs Auto 0.02 10^3/uL (0.00-0.03); Immature Granulocytes Pct Auto 0.4 % (0.0-0.5); Lymphocytes Absolute Auto 1.7 10^3/uL (1.2-3.8); Mean Corpuscular HGB Conc 33.9 g/dL (29.9-35.2); Mean Corpuscular Hemoglobin 29.8 pg (25.9-34.0); Mean Corpuscular Volume 88.1 fL (80.0-94.0); Platelet Count 175 10^3/uL (150-450); Red Blood Count 4.86 10^6/uL (4.70-6.10); White Blood Count 5.4 10^3/uL (4.0-11.0)
[2025-07-03 10:14] LABS: Alanine Aminotransferase 34 U/L (16-63); Albumin Globulin Ratio 1.2; Albumin Level 4.1 g/dL (3.4-5.0); Alkaline Phosphatase 58 U/L (46-116); Anion Gap 10.7; Aspartate Amino Transferase 22 U/L (15-37); Blood Urea Nitrogen 13.0 mg/dL (7.0-18.0); Calcium 9.3 mg/dL (8.5-10.1); Carbon Dioxide 27.8 mmol/L (21.0-32.0); Chloride 102 mmol/L (98-107); Cholesterol 168 mg/dL (<=200); Estimated GFR (African America >60 (>=60 mL/min/1.73m^2); Estimated GFR (Non-African Ame >60 (>=60 mL/min/1.73m^2); Globulin 3.5 g/dL; Glucose 123 mg/dL (74-106); HDL Cholesterol 65 mg/dL (40-60); Potassium 4.5 mmol/L (3.5-5.1); Sodium 136 mmol/L (136-145); Total Protein 7.6 g/dL (6.4-8.2); Triglycerides 61 mg/dL (<=150); VLDL CHOLESTEROL 12.2 mg/dL
== END 2025-07-03 08:54 | disposition home or self-care (01) ==
PROVIDERS: PCP Internal Medicine; Visit Provider Internal Medicine
DX: Z12.5 Encounter for screening for malignant neoplasm of prostate (principal); E11.65 Type 2 diabetes mellitus with hyperglycemia; E78.00 Pure hypercholesterolemia, unspecified; I10 Essential (primary) hypertension
CPT/HCPCS: 36415; 80053; 80061; 82043; 82570; 83036; 85025; G0103

== ENCOUNTER 2025-07-27 09:12 | Outpatient (OUT) | payer OTHER, SELFPAY ==
--- OUTSIDE RECORDS SUMMARY | 2025-07-27 09:15 | XMS_ITS | CCD ---
Author Organization [facility] Care Team Providers Care Coordinator Of Online Programs Name Role Phone REQUEST, DR RICK LISTED Admitting Unavaila ble REQUEST, DR RICK LISTED Attending Unavaila ble REQUEST, DR RICK LISTED Consulting Unavaila ble FORTINO, DR HORVATH Admitting Unavailable FORTINO, DR HORVATH Attending Unavailable FORTINO, DR HORVATH Primary Care Unavailable FORTINO, DR HORVATH Consulting Unavailable Frank Mckeon Unavailable Paloma Immariam Unavailable DAMON BADILLO Referring Unavailable DAMON BADILLO Primary Care Unavailable DO Frank Mckeon Primary Care Provider [phone] MD Paloma Immariam Attending Provider Frank Mckeon Primary Care Unavailable Asaad, Immariam Attending Unavailable Asaad, Imad Admitting Unavailable DEWAYNEMadonna Attending Unavailable Frank Mckeon DO Primary Care Provider Frank Mckeon DO Attending Provider Allergies Allergy Classification Reported Allergen(s) Allergy Type Date of Onset Reaction(s) Facility (1 source) ALLERGIES NOT ON FILE; Translations: [ALLERGIES NOT ON FILE] Propensity to adverse reactions (disorder) [facility] Repository (1 source) Bacitracin; Translations: [bacitracin] Drug Allergy [facility] Repository (1 source) Bee/Wasp/Ant venom; Translations: [Bee Stings] Propensity to adverse reactions (disorder) [facility] Repository Medications Current Medications Medication Drug Class(es) Dates Sig (Normalized) Sig (Original) amLODIPine 5 mg / benazepril hydrochloride 40 mg oral capsule (16 sources) Dihydropyridine Calcium Channel Petros, Angiotensin Converting Enzyme Inhibitor Start: 07-30-2023 End: 01-10-2024 take 1 capsule by mouth once daily Amlodipine-Benaz epril 5-40 mg capsule Active 1 CAP PO Daily 90 90 January 10, 2024 4:27pm Complies with drug therapy Blood-Glucose Meter (Onetouch Ultra2 Meter) misc (2 sources) Start: 01-23-2024 Blood-Glucose Meter (Onetouch Ultra2 Meter) misc Active 0 .ROUTE .MEDSUPPLY January 23, 2024 12:00am Use to test home BS qd linagliptin 5 mg oral tablet (4 sources) Dipeptidyl Peptidase 4 Inhibitor Start: 01-23-2024 End: 07-06-2024 take 1 tablet by mouth once daily Linagliptin (Tradjenta) 5 mg tablet Active 5 MG PO Daily July 06, 2024 5:58pm Complies with drug therapy metFORMIN hydrochloride 500 mg oral tablet (4 sources) Biguanide Start: 07-06-2024 take 1 tablet by mouth once daily Metformin 500 mg tablet Active 0 .ROUTE .COMPLEX July 06, 2024 5:58pm TAKE 1 TABLET BY MOUTH DAILY Complies with drug therapy Start: 01-23-2024 End: 07-06-2024 take 1 tablet by mouth once daily Metformin 500 mg tablet Discontinued 500 MG PO Daily January 23, 2024 12:00am July 06, 2024 5:58pm polyethylene glycol 3350 [id number] mg / potassium chloride 2970 mg / sodium bicarbonate 6740 mg / sodium chloride 5860 mg / sodium sulfate 18206 mg powder for oral solution (7 sources) Osmotic Laxative Start: 06-28-2023 take 236 g by mouth once daily Golytely 236 GM as directed Orally once daily for 1 days Jun, Active pregabalin 100 mg oral capsule (1 source) Start: 04-22-2025 take 1 capsule by mouth twice daily Pregabalin (Lyrica) 100 mg capsule Active 100 MG PO Twice daily April 22, 2025 12:00am Complies with drug therapy rosuvastatin calcium 20 mg oral tablet (4 sources) HMG-CoA Reductase Inhibitor Start: 06-02-2024 take 1 tablet by mouth once daily Rosuvastatin 20 mg tablet Active 0 .ROUTE .COMPLEX June 02, 2024 9:28pm TAKE 1 TABLET BY MOUTH EVERY DAY FOR 30 DAYS Complies with drug therapy Start: 01-24-2024 End: 06-02-2024 take 1 tablet by mouth once daily Rosuvastatin 20 mg tablet Discontinued 20 MG PO Daily January 234 12:00am June 02, 2024 9:28pm Completed/Discontinued Medications Medication Drug Class(es) Dates Sig (Normalized) Sig (Original) atorvastatin 40 mg oral tablet (14 sources) HMG-CoA Reductase Inhibitor Start: 07-30-2023 End: 01-23-2024 take 1 tablet by mouth once daily Atorvastatin 40 mg tablet Discontinued 40 MG PO Daily July 30, 2023 12:00am January 23, 2024 1:51pm bempedoic acid 180 mg oral tablet (2 sources) Start: 01-23-2024 End: 07-02-2024 take 1 tablet by mouth once daily Bempedoic Acid (Nexletol) 180 mg tablet Discontinued 180 MG PO Daily January 23, 2024 12:00am July 02, 2024 9:02am gabapentin 300 mg oral capsule (20 sources) Anti-epileptic Agent Start: 01-15-2024 End: 04-22-2025 take 1 capsule by mouth four times daily Gabapentin 300 mg capsule Discontinued 300 MG PO Four times daily 120 January 15, 2024 9:43am April 22, 2025 10:00am Start: 07-30-2023 End: 01-15-2024 take 1 capsule by mouth twice daily Gabapentin 300 mg capsule Discontinued 300 MG PO Twice daily 180 90 January 10, 2024 4:27pm January 15, 2024 8:58am Start: 12-27-2022 take 1 capsule by [facility] every six hours Gabapentin 300 MG 1 capsule Orally qid Dec, Active hydroCHLOROthiazide 25 mg oral tablet (9 sources) Thiazide Diuretic Start: 07-25-2023 End: 03-25-2024 take 1 tablet by mouth once daily Hydrochlorothiazide 25 mg tablet Discontinued 25 MG PO Daily July 30, 2023 12:00am January 10, 2024 4:28pm meloxicam 15 mg oral tablet (11 sources) Nonsteroidal Anti-inflammatory Drug Meloxicam 15 MG TAKE 1 TABLET DAILY Not-Taking/PRN 72 hr scopolamine 0.0139 mg/hr transdermal system (13 sources) Anticholinergic Start: 01-23-2024 End: 07-02-2024 Scopolamine Base 1 mg over 3 days [...] Episodic/Chronic Aortic; peripheral; and visceral artery aneurysms (9 sources) Ascending aorta dilatation; Translations: [Thoracic aortic ectasia] Chronic Comment on above: CT chest: 4.2cm - , 06/2024 Diabetes mellitus with complications (19 sources) Type 2 diabetes mellitus; Translations: [Type [...] hypertension] Onset: 05-15-2022 Chronic Hyperplasia of prostate (2 sources) Benign prostatic hyperplasia; Translations: [Benign prostatic hyperplasia with lower urinary tract symptoms] 06-23-2024 Chronic Other nervous system disorders (11 sources) Polyneuropathy; Translations: [Polyneuropathy, unspecified] Chronic Other nervous system disorders (2 sources) Polyneuropathy, unspecified Chronic Other nutritional; endocrine; and metabolic disorders (2 sources) Overweight Episodic Other screening for suspected conditions (not mental disorders or infectious disease) (20 sources) Encounter for screening for malignant neoplasm of prostate; Translations: [Encounter for screening for malignant neoplasm of colon] Onset: 05-15-2022 Episodic Comment on above: PSA:2.57 - 05/2022, 2 .43 - 05/2023, 2.22 - 06/2024 PSA:2.57 - 05/2022, 2 .43 - 05/2023, 2.22 - 06/2024, 3.42 - 06/2025 Unclassified (1 source) Encounter for screening for malignant neoplasm of colon; Translations: [Encounter for screening for malignant neoplasm of colon] Onset: 07-30-2023 Results Test Name Value Interpretation Reference Range Facility Basophils Auto (Bld) [#/Vol] Ordered By: Frank Mckeon on 07-03-2025 Basophils (Bld) [#/Vol] 0.0 10 3/uL 0.0-0.1 [facility] Basophils/100 WBC Auto (Bld) Ordered By: Frank Mckeon on 07-03-2025 Basophils/100 WBC (Bld) 0.6 % 0.2-2.0 [facility] Cholesterol in LDL Calc [Mas s/Vol]Ordered By: Frank Mckeon on 07-03-2025 Cholesterol in LDL [Mass/Vol] 91.0 mg/dL [facility] Comment on above: <100 mg/dl [id number] 0-129 mg/dl NEAR OR ABOVE [id number] mg/dl BORDERLINE [id number] mg/dl HIGH>190 mg/dl VERY HIGH Cholesterol in VLDL Calc [Ma ss/Vol]Ordered By: Frank Mckeon on 07-03-2025 Cholesterol in VLDL [Mass/Vol] 12.2 mg/dL [facility] Eosinophils/100 WBC Auto (Bl d)Ordered By: Frank Mckeon on 07-03-2025 Eosinophils/100 WBC (Bld) 3.0 % 0.9-7.0 [facility] Erythrocyte distribution wid th Auto (RBC) [Ratio]Ordered By: Frank Mckeon on 07-03-2025 Erythrocyte distribution width (RBC) [Ratio] 13.5 % 11.0-15.0 [facility] Globulin Calc (S) [Mass/Vol] Ordered By: Frank Mckeon on 07-03-2025 Globulin (S) [Mass/Vol] 3.5 g/dL [facility] Glomerular filtration rate ( GFR) estimation in non- AmericanOrdered By: Frank Mckeon on 07-03-2025 GFR/1.73 sq M.predicted among non-blacks MDRD (S/P/Bld) [Vol rate/Area] mL/min/{1.73_m2} >=60 mL/min/1.73m 2 [facility] Glucose mean value [Mass/vol ume] in Blood Estimated from glycated hemoglobinOrdered By: Frank Mckeon on 07-03-2025 Average glucose Estimated from glycated hemoglobin (Bld) [Mass/Vol] 134 mg/dL [facility] Hematocrit Auto (Bld) [Volum e fraction]Ordered By: Frank Mckeon on 07-03-2025 Hematocrit (Bld) [Volume fraction] 42.8 % 42.0-54.0 [facility] Hemoglobin A1c percentageOrd ered By: Frank Mckeon on 07-03-2025 HbA1c (Bld) [Mass fraction] 6.3 % High 4.5-6.2 [facility] Comment on above: ADA RECOMMENDED LIMI T 4.0 - 6.0ADA THERAPEUTIC TARGET < 7.0ACTION SUGGESTED> 7.0 Hemoglobin [Mass/volume] in BloodOrdered By: Frank Mckeon on 07-03-2025 Hemoglobin (Bld) [Mass/Vol] 14.5 g/dL 14.0-18.0 [facility] Laboratory - Chemistry and C hemistry - challengeOrdered By: Frank Mckeon on 07-03-2025 Albumin [Mass/Vol] 4.1 g/dL 3.4-5.0 [facility] ALP [Catalytic activity/Vol] 58 U/L 46-116 [facility] ALT [Catalytic activity/Vol] 34 U/L 16-63 [facility] AST [Catalytic activity/Vol] 22 U/L 15-37 [facility] Bilirubin [Mass/Vol] 0.7 mg/dL 0.2-1.0 [facility] Calcium [Mass/Vol] 9.3 mg/dL 8.5-10.1 [facility] Chloride [Moles/Vol] 102 mmol/L 98-107 [facility] Cholesterol [Mass/Vol] 168 mg/dL <=200 [facility] Cholesterol in HDL [Mass/Vol] 65 mg/dL High 40-60 [facility] Comment on above: > or =60 mg/dl - LOW CARDIOVASCULAR RISK<40 mg/dl - HIGH CARDIOVASCULAR RISK CO2 [Moles/Vol] 27.8 mmol/L 21.0-32.0 [facility] Creatinine [Mass/Vol] 0.79 mg/dL 0.70-1.30 [facility] GFR/1.73 sq M.predicted MDRD (S/P/Bld) [Vol rate/Area] mL/min/{1.73_m2} >=60 mL/min/1.73m 2 [facility] Glucose [Mass/Vol] 123 mg/dL High 74-106 [facility] Potassium [Moles/Vol] 4.5 mmol/L 3.5-5.1 [facility] Protein [Mass/Vol] 7.6 g/dL 6.4-8.2 [facility] Sodium [Moles/Vol] 136 mmol/L 136-145 [facility] Triglyceride [Mass/Vol] 61 mg/dL <=150 [facility] Urea nitrogen [Mass/Vol] 13.0 mg/dL 7.0-18.0 [facility] Urea nitrogen/Creatinine [Mass ratio] 16.5 mg/mg [facility] Laboratory - Hematology and Cell countsOrdered By: Frank Mckeon on 07-03-2025 Immature granulocytes/100 WBC (Bld) 0.4 % 0.0-0.5 [facility] Leukocytes [#/volume] correc delta for nucleated erythrocytes in Blood by Automated counOrdered By: Frank Mckeon on 07-03-2025 WBC corrected for nucl RBC Auto (Bld) [#/Vol] 5.4 10 3/uL 4.0-11.0 [facility] Lymphocytes Auto (Bld) [#/Vo l]Ordered By: Frank Mckeon on 07-03-2025 Lymphocytes (Bld) [#/Vol] 1.7 10 3/uL 1.2-3.8 [facility] Lymphocytes/100 WBC Auto (Bl d)Ordered By: Frank Mckeon on 07-03-2025 Lymphocytes/100 WBC (Bld) 32.0 % 20.5-60.0 [facility] MCH Auto (RBC) [Entitic mass ]Ordered By: Frank Mckeon on 07-03-2025 MCH (RBC) [Entitic mass] 29.8 pg 25.9-34.0 [facility] MCHC Auto (RBC) [Mass/Vol]Or dered By: Frank Mckeon on 07-03-2025 MCHC (RBC) [Mass/Vol] 33.9 g/dL 29.9-35.2 [facility] MCV Auto (RBC) [Entitic vol] Ordered By: Frank Mckeon on 07-03-2025 MCV (RBC) [Entitic vol] 88.1 fL 80.0-94.0 [facility] Microalbumin [Mass/volume] i n UrineOrdered By: Frank Mckeon on 07-03-2025 Albumin DL <= 20 mg/L (U) [Mass/Vol] mg/dL <=30.0 [facility] Monocytes Auto (Bld) [#/Vol] Ordered By: Frank Mckeon on 07-03-2025 Monocytes (Bld) [#/Vol] 0.4 10 3/uL 0.3-0.8 [facility] Monocytes/100 WBC Auto (Bld) Ordered By: Frank Mckeon on 07-03-2025 Monocytes/100 WBC (Bld) 7.6 % 1.7-12.0 [facility] Neutrophils Auto (Bld) [#/Vo l]Ordered By: Frank Mckeon on 07-03-2025 Neutrophils (Bld) [#/Vol] 3.0 10 3/uL 1.4-6.5 [facility] Neutrophils/100 WBC Auto (Bl d)Ordered By: Frank Mckeon on 07-03-2025 Neutrophils/100 WBC (Bld) 56.4 % 43.0-75.0 [facility] No Panel InformationOrdered By: Frank Mckeon on 07-03-2025 Eosinophils # (Auto) 0.2 10 3/uL 0.0-0.7 [facility] Immature Granulocyte # (Auto) 0.02 10 3/uL 0.00-0.03 [facility] Prostate Specific Antigen Screen 3.42 ng/mL <=4.00 [facility] Urine Random Creatinine 110.76 mg/dL 20.00-300. 00 [facility] Platelet mean volume Auto (B ld) [Entitic vol]Ordered By: Frank Mckeon on 07-03-2025 Platelet mean volume (Bld) [Entitic vol] 10.1 fL 9.5-13.5 [facility] Platelets Auto (Bld) [#/Vol] Ordered By: Frank Mckeon on 07-03-2025 Platelets (Bld) [#/Vol] 175 10 3/uL 150-450 [facility] RBC Auto (Bld) [#/Vol]Ordere d By: Frank Mckeon on 07-03-2025 RBC (Bld) [#/Vol] 4.86 10 6/uL 4.70-6.10 [facility] Serum or plasma albumin/glob ulin mass ratioOrdered By: Frank Mckeon on 07-03-2025 Albumin/Globulin [Mass ratio] 1.2 {ratio} [facility] Serum or plasma anion gap de terminationOrdered By: Frank Mckeon on 07-03-2025 Anion gap [Moles/Vol] 10.7 mmol/L [facility] Serum or plasma total choles terol/high density lipoprotein (HDL) cholesterol mass ratOrdered By: Frank Mckeon on 07-03-2025 Cholesterol.total/Choles terol in HDL [Mass ratio] 2.6 {ratio} [facility] Comment on above: 3.3 - 4.4 LOW RISK4. 4 - 7.1 AVERAGE RISK7.1 - 11.0 MODERATE RISK>11.[address] CARDIAC SCORING WO IV CON TRASTon [...] STRUCTURES ARE THE SOLE RESPONSIBILITY OF THE ADMINISTRATION SPECIALIST SUBMITTING THE ORIGINAL REPORT (NOT THIS ADDENDUM) Signed by: Mp Wilcox 07/13/2023 1:22 PM -------- ORIGINAL REPORT -------- Dictation workstation: [id number] Interpreted By: Freeman Vo, STUDY: CT CARDIAC SCORING WO IV CONTRAST; 07/07/2023 11:28 am INDICATION: Signs/Symptoms:HYP ERTENSION. COMPARISON: None. ACCESSION NUMBER(S): [id number] ORDERING CLINICIAN: FRANK MCKEON TECHNIQUE: Using prospective [...] increased >800 John et al. JCCT 2016 (http://dx.doi.org /10.1016/j.jcct.20 16.11.003) GALEANO Percentile In general, greater than 75th percentile for age, gender, and race is considered to be a higher relative risk and higher lifetime risk condition. Greater than 75th percentile=moderat e to severely increased relative risk irrespective of the score. Advise using GALEANO 10 year CHD risk calculator below for better discrimination of risk. GALEANO 10-Year CHD Risk with Coronary Artery Calcification can be calcuate using link below https://www.galeano-n hlbi.org/MESACHDRi sk/MesaRiskScore/R iskScore.aspx Dannie JACC 2014 (http://dx.doi.org /10.1016/j.j acc.2015.08.035) Reading Clinical Research Coordinator: Dr. Freeman Vo, Date: 07/10/2023 12:28 pm Signed by: Freeman Vo 07/10/2023 12:29 PM Dictation workstation: [id number] [facility] Comment on above: Order Comment: PT WI LL BRING ORDER TO VISIT CBC AUTO DIFFon 05-13-2022 BASO # 0.0 103/ul Normal 0.0-0.1 [facility] Comment on above: Performed By: #### C BC #### [facility] [address] [address] [address] David Lewis Basophils/100 WBC (Bld) 0.6 % Normal 0.2-2.0 [facility] Comment on above: Performed By: #### C BC #### [facility] [address] [address] [address] David Lewis EO # 0.3 103/ul Normal 0.0-0.7 [facility] Comment on above: Performed By: #### C BC #### [facility] [address] [address] [address] David Lewis Eosinophils/100 WBC (Bld) 4.9 % Normal 0.9-7.0 [facility] Comment on above: Performed By: #### C BC #### [facility] [address] [address] [address] David Lewis Erythrocyte distribution width (RBC) [Ratio] 12.9 % Normal 11.0-15.0 [facility] Comment on above: Performed By: #### C BC #### [facility] [address] [address] [address] David Lewis Hematocrit (Bld) [Volume fraction] 39.5 % Critically low 42.0-54.0 [facility] Comment on above: Performed By: #### C BC #### [facility] [address] [place] [address] Dr. David Lewis Hemoglobin (Bld) [Mass/Vol] 13.5 g/dL Critically low 14.0-18.0 [facility] Comment on above: Performed By: #### C BC #### [facility] [address] [place] [address] Dr. David Lewis IG # 0.02 10e3/ul Normal 0.00-0.03 [facility] Comment on above: Performed By: #### C BC #### [facility] [address] [place] [address] Dr. David Lewis IG % 0.4 % Normal 0.0-0.5 [facility] Comment on above: Performed By: #### C BC #### [facility] [address] [place] [address] Dr. David Lewis LYMPH # 1.3 103/ul Normal 1.2-3.8 [facility] Comment on above: Performed By: #### C BC #### [facility] [address] [place] [address] Dr. David Lewis Lymphocytes/100 WBC (Bld) 24.8 % Normal 20.5-60.0 [facility] Comment on above: Performed By: #### C BC #### [facility] [address] [place] [address] Dr. David Lewis MANUAL DIFF REQ NO Normal [facility] Comment on above: Performed By: #### C BC #### [facility] [address] [place] [address] Dr. David Lewis MCH (RBC) [Entitic mass] 30.5 pg Normal 25.9-34.0 [facility] Comment on above: Performed By: #### C BC #### [facility] [address] [place] [address] Dr. David Lewis MCHC (RBC) [Mass/Vol] 34.2 g/dL Normal 29.9-35.2 [facility] Comment on above: Performed By: #### C BC #### [facility] [address] [place] [address] Dr. David Lewis MCV (RBC) [Entitic vol] 89.2 fL Normal 80.0-94.0 [facility] Comment on above: Performed By: #### C BC #### [facility] [address] [place] [address] Dr. David Lewis MONO # 0.4 103/ul Normal 0.3-0.8 [facility] Comment on above: Performed By: #### C BC #### [facility] [address] [place] [address] Dr. David Lewis Monocytes/100 WBC (Bld) 8.5 % Normal 1.7-12.0 [facility] Comment on above: Performed By: #### C BC #### [facility] [address] [place] [address] Dr. David Lewis NEUT # 3.1 103/ul Normal 1.4-6.5 [facility] Comment on above: Performed By: #### C BC #### [facility] [address] [place] [address] Dr. David Lewis Neutrophils/100 WBC (Bld) 60.8 % Normal 43.0-75.0 [facility] Comment on above: Performed By: #### C BC #### [facility] [address] [place] [address] Dr. David Lewis Platelet mean volume (Bld) [Entitic vol] 9.8 fL Normal 9.5-13.5 [facility] Comment on above: Performed By: #### C BC #### [facility] [address] [place] [address] Dr. David Lewis PLT 156 103/ul Normal 150-450 [facility] Comment on above: Performed By: #### C BC #### [facility] [address] [place] [address] Dr. David Lewis RBC 4.43 106/ul Critically low 4.70-6.10 [facility] Comment on above: Performed By: #### C BC #### [facility] [address] [place] [address] Dr. David Lewis WBC 5.1 103/ul Normal 4.0-11.0 [facility] Comment on above: Performed By: #### C BC #### [facility] [address] [place] [address] Dr. David Lewis GLYCOHEMOGLOBIN A1Con 2021 ADA RECOMMENDATION SEE BELOW Normal [facility] Comment on above: Result Comment: ADA RECOMMENDED LIMIT 4.0 - 6.0 ADA THERAPEUTIC TARGET < 7.0 ACTION SUGGESTED > 7.0 Performed By: #### A 1C #### [facility] [address] [place] [address] Dr. David Lewis Glucose [Mass/Vol] 128 mg/dL Normal [facility] Comment on above: Performed By: #### A 1C #### [facility] [address] [place] [address] Dr. David Lewis HbA1c (Bld) [Mass fraction] 6.1 % Normal 4.5-6.2 [facility] Comment on above: Performed By: #### A 1C #### [facility] [address] [place] [address] Dr. David Lewis LIPID PROFILEon 05-13-2022 CHOL-HDL RATIO NORM SEE BELOW Normal [facility] Comment on above: Result Comment: 3.3 - 4.4 LOW RISK 4.4 - 7.1 AVERAGE RISK 7.1 - 11.0 MODERATE RISK >11.0 HIGH RISK Performed By: #### B MP, LIPID, ALT #### [facility] [address] [place] [address] Dr. David Lewis Cholesterol [Mass/Vol] 145 mg/dL Normal <=200 [facility] Comment on above: Performed By: #### B MP, LIPID, ALT #### [facility] [address] [place] [address] Dr. David Lewis Cholesterol in HDL [Mass/Vol] 48 mg/dL Normal 40-60 [facility] Comment on above: Performed By: #### B MP, LIPID, ALT #### [facility] [address] [place] [address] Dr. David Lewis Cholesterol in LDL [Mass/Vol] 78.2 mg/dL Normal [facility] Comment on above: Performed By: #### B MP, LIPID, ALT #### [facility] [address] [address] [address] David Lewis Cholesterol.total/Choles terol in HDL [Mass ratio] 3.0 {ratio} Normal [facility] Comment on above: Performed By: #### B MP, LIPID, ALT #### [facility] [address] [address] [address] David Lewis HDL NORMAL > or = 60 mg/dl - LOW CARDIOVASCULAR RISK <40 mg/dl - HIGH CARDIOVASCULAR RISK Normal [facility] Comment on above: Performed By: #### B MP, LIPID, ALT #### [facility] [address] [place] [address] Dr. David Lewis LDL CALC NORMAL SEE BELOW Normal [facility] Comment on above: Result Comment: <100 mg/dl OPTIMAL 100 - 129 mg/dl NEAR OR ABOVE OPTIMAL 130 - 159 mg/dl BORDERLINE HIGH 160 - 189 mg/dl HIGH >190 mg/dl VERY HIGH Performed By: #### B MP, LIPID, ALT #### [facility] [address] [place] [address] Dr. David Lewis Triglyceride [Mass/Vol] 94 mg/dL Normal <=150 [facility] Comment on above: Performed By: #### B MP, LIPID, ALT #### [facility] [address] [place] [address] Dr. David Lewis VLDL CALC 18.8 mg/dL Normal [facility] Comment on above: Performed By: #### B MP, LIPID, ALT #### [facility] [address] [address] [address] David Lewis MICROALBUMIN, RAND URon 08-0 mALB <1.3 Normal <=30.0 [facility] Comment on above: Performed By: #### M ALBR #### [facility] [address] [place] [address] Dr. David Lewis PROF CHEM 8 (BAS METB)on Anion gap [Moles/Vol] 12.3 mmol/L Normal [facility] Comment on above: Performed By: #### B MP, LIPID, ALT #### [facility] [address] [address] [address] David Lewis Calcium [Mass/Vol] 8.7 mg/dL Normal 8.5-10.1 [facility] Comment on above: Performed By: #### B MP, LIPID, ALT #### [facility] [address] [address] [address] David Lewis Chloride [Moles/Vol] 105 mmol/L Normal 98-107 [facility] Comment on above: Performed By: #### B MP, LIPID, ALT #### [facility] [address] [place] [address] Dr. David Lewis CO2 [Moles/Vol] 28.1 mmol/L Normal 21.0-32.0 [facility] Comment on above: Performed By: #### B MP, LIPID, ALT #### [facility] [address] [place] [address] Dr. David Lewis Creatinine [Mass/Vol] 0.92 mg/dL Normal 0.70-1.30 [facility] Comment on above: Performed By: #### B MP, LIPID, ALT #### [facility] [address] [place] [address] Dr. David Lewis EGFR-AF [facility] >60 Normal >=60 [facility] Comment on above: Performed By: #### B MP, LIPID, ALT #### [facility] [address] [place] [address] Dr. David Lewis EGFR-NON AF [facility] >60 Normal >=60 [facility] Comment on above: Performed By: #### B MP, LIPID, ALT #### [facility] [address] [place] [address] Dr. David Lewis Glucose [Mass/Vol] 138 mg/dL Critically high 74-106 [facility] Comment on above: Performed By: #### B MP, LIPID, ALT #### [facility] [address] [address] [address] David Lewis Potassium [Moles/Vol] 4.4 mmol/L Normal 3.5-5.1 [facility] Comment on above: Performed By: #### B MP, LIPID, ALT #### [facility] [address] [address] [address] David Lewis Sodium [Moles/Vol] 141 mmol/L Normal 136-145 [facility] Comment on above: Performed By: #### B MP, LIPID, ALT #### [facility] [address] [place] [address] Dr. David Lewis Urea nitrogen [Mass/Vol] 18.0 mg/dL Normal 7.0-18.0 [facility] Comment on above: Performed By: #### B MP, LIPID, ALT #### [facility] [address] [place] [address] Dr. David Lewis Urea nitrogen/Creatinine [Mass ratio] 19.6 mg/mg Normal [facility] Comment on above: Performed By: #### B MP, LIPID, ALT #### [facility] [address] [place] [address] Dr. David Lewis [facility] 05-13-2022 ALT [Catalytic activity/Vol] 34 U/L Normal 16-63 [facility] Comment on above: Performed By: #### B MP, LIPID, ALT #### [facility] [address] [place] [address] Dr. David Lewis GLYCOHEMOGLOBIN A1Con 2020 ADA RECOMMENDATION ADA THERAPEUTIC TARGET 6.0 - 7.0 ACTION SUGGESTED > 7.0 Normal [facility] Comment on above: Performed By: #### D ATA1C #### [facility] [address] [place] [address] Dr. David Lewis Glucose [Mass/Vol] 123 mg/dL Normal [facility] Comment on above: Performed By: #### D ATA1C #### [facility] [address] [place] [address] Dr. David Lewis HbA1c (Bld) [Mass fraction] 5.9 % Normal <=6.0 [facility] Comment on above: Performed By: #### D ATA1C #### [facility] [address] [place] [address] Dr. David Lewis Vital Signs Date Time Vital Sign Value Performing Clinician Facility 07-07-2025 09:07-0400 Body height 187.96 cm Frank Ball DO Work Phone: [facility] 07-07-2025 09:07-0400 Body mass index (BMI) [Ratio] 29.2 kg/m2 Frank Ball DO Work Phone: [facility] 07-07-2025 09:07-0400 Body weight 103.53 kg Frank Ball DO Work Phone: [facility] 07-07-2025 09:07-0400 Diastolic blood pressure 80 mm[Hg] Frank Ball DO Work Phone: [facility] 07-07-2025 09:07-0400 Heart rate 66 /min Frank Ball DO Work Phone: [facility] 07-07-2025 09:07-0400 Respiratory rate 12 /min Frank Ball DO Work Phone: [facility] 07-07-2025 09:07-0400 Systolic blood pressure 120 mm[Hg] Frank Ball DO Work Phone: [facility] 02-12-2025 09:57-0400 Body height 187.96 cm [facility] 02-12-2025 09:57-0400 Body mass index (BMI) [Ratio] 29.4 kg/m2 [facility] 02-12-2025 09:57-0400 Body weight 103.92 kg [facility] 02-12-2025 09:57-0400 Diastolic blood pressure 81 mm[Hg] [facility] 02-12-2025 09:57-0400 Heart rate 66 /min [facility] 02-12-2025 09:57-0400 Respiratory rate 12 /min [facility] 02-12-2025 09:57-0400 Systolic blood pressure 150 mm[Hg] [facility] 07-30-2023 12:30-0400 Diastolic blood pressure 91 mm[Hg] DO Frank Ball Work Phone: [facility] 07-30-2023 12:30-0400 Heart rate 76 /min DO Frank Ball Work Phone: [facility] 07-30-2023 12:30-0400 Respiratory rate 16 /min DO Frank Ball Work Phone: [facility] 07-30-2023 12:30-0400 SaO2% (BldA) [Mass fraction] 97 % DO Frank Ball Work Phone: [facility] 07-30-2023 12:30-0400 Systolic blood pressure 168 mm[Hg] DO Frank Ball Work Phone: [facility] 07-30-2023 11:15-0400 Body height 187.96 cm DO Frank Ball Work Phone: [facility] 07-30-2023 11:15-0400 Body weight 99.79 kg DO Frank Ball Work Phone: [facility] 07-25-2023 09:30-0400 Body height 190.5 cm Frank Ball Other [facility] Other 07-25-2023 09:30-0400 Body mass index (BMI) [Ratio] 29.69 kg/m2 Frank Ball Other [facility] Other 07-25-2023 09:30-0400 Body weight 107.78 kg Frank Ball Other [facility] Other 07-25-2023 09:30-0400 Diastolic blood pressure 84 mm[Hg] Frank Ball Other [facility] Other 07-25-2023 09:30-0400 Respiratory rate 12 /min Frank Ball Other [facility] Other 07-25-2023 09:30-0400 Systolic blood pressure 152 mm[Hg] Frank Ball Other [facility] Other 05-30-2023 09:30-0400 Body height 190.5 cm Frank Mckeon Other [facility] Other 05-30-2023 09:30-0400 Body mass index (BMI) [Ratio] 29.57 kg/m2 Frank Mckeon Other [facility] Other 05-30-2023 09:30-0400 Body weight 107.32 kg Frank Mckeon Other [facility] Other 05-30-2023 09:30-0400 Diastolic blood pressure 89 mm[Hg] Frank Mckeon Other [facility] Other 05-30-2023 09:30-0400 Respiratory rate 12 /min Frank Mckeon Other [facility] Other 05-30-2023 09:30-0400 Systolic blood pressure 167 mm[Hg] Frank Mckeon Other [facility] Other Encounters Encounter Date Encounter Type Care Provider Facility Start: 07-07-2025 End: 07-07-2025 ambulatory Frank Mckeon DO Work Phone: [facility] Work Phone: Start: 07-07-2025 End: 07-07-2025 Patient encounter procedure Frank Mckeon -[facility] Work Phone: Start: 07-03-2025 Non-patient / Non-visit Frank Bert moser DO [email or web address] Work Phone: Start: 02-12-2025 End: 02-12-2025 ambulatory [facility] Work Phone: Start: 02-12-2025 End: 02-12-2025 Patient encounter procedure [facility] Work Phone: Start: 06-29-2024 Patient encounter procedure [facility] Start: 06-17-2024 End: 06-17-2024 ambulatory Madonna BUCHANAN Facility:[facility] Start: 10-26-2023 End: 10-26-2023 ambulatory Frank Ball Other [facility] Other Start: 10-26-2023 Telephone encounter Frank Ball [facility] Start: 08-20-2023 End: 08-20-2023 ambulatory Frank Ball Other [facility] Other Start: 08-20-2023 Telephone encounter Frank Ball [facility] Start: 07-31-2023 End: 07-31-2023 ambulatory Frank Ball Other [facility] Other Start: 07-31-2023 Telephone encounter Frank Ball [facility] Start: 07-30-2023 End: 07-30-2023 ambulatory Frank Ball Facility:[facility] Start: 07-30-2023 End: 07-30-2023 Admission to same day surgery center DO Frank Ball Work Phone: [facility] Work Phone: Start: 07-30-2023 End: 07-30-2023 ambulatory DO Farnk Ball Work Phone: [facility] Work Phone: Start: 07-25-2023 End: 07-25-2023 ambulatory Frank Ball Other [facility] Other Start: 07-25-2023 Office outpatient vi sit 15 minutes Frank Ball [facility] Start: 07-12-2023 End: 07-12-2023 ambulatory Frank Ball Other [facility] Other Start: 07-12-2023 Telephone encounter Frank Ball [facility] Start: 07-07-2023 End: 07-08-2023 ambulatory [facility] Start: 06-28-2023 End: 06-28-2023 ambulatory Frank Mckeon Other [facility] Other Start: 06-28-2023 Telephone encounter Frank Mckeon FP [facility] Start: 06-27-2023 End: 06-27-2023 ambulatory Imad Asaad Other [facility] Other Start: 06-27-2023 Telephone encounter Imad Asaad [facility] [employer] Start: 06-18-2023 End: 06-18-2023 ambulatory Frank Mckeon Other [facility] Other Start: 06-18-2023 Telephone encounter Frank Mckeon FP [facility] Start: 05-30-2023 End: 05-30-2023 ambulatory Frank Mckeon Other [facility] Other Start: 05-30-2023 Patient encounter procedure Frank Mckeon [facility] Start: 05-30-2023 Telephone encounter Frank Mckeon [facility] Start: 05-13-2022 End: 05-14-[address] [...] Comment on above: Performed By: #### [facility] #### [facility] [address] [place] [address] Dr. David Lewis Plan of Treatment Date Care Activity Detail Author Start: 07-30-2023 [facility] Patient Education Hemorrhoids (D C) Diverticulosis (DC) [facility] Work Phone: Immunizations Immunization Date Immunization Notes Care Provider Alejandra donaldson 02-02-2017 diphtheria, tetanus toxoids and acellular pertussis vaccine, unspecified formulation Frank Mckeon Other [facility] 07-19-2016 zoster vaccine, live Benjami blue Mckeon Other [facility] 01-12-2016 diphtheria, tetanus toxoids and acellular pertussis vaccine, unspecified formulation Frank Mckeon Other [facility] 01-12-2016 pneumococcal conjuga te vaccine, 13 valent Frank Mckeon Other [facility] 11-04-2014 pneumococcal polysaccharide vaccine, 23 valent Frank Mckeon Other [facility] Payers Date Payer Category Payer Unknown [id number] 1961 Medicare [id number] 1961 Self-pay 1961 Unknown [id number] 1950 Unknown [id number] 1950 Unknown [id number] Unknown [id number] Unknown [id number] Unknown [id number] Unknown [facility] [id number] Social History Date Type Detail Facility Sex Assigned At [facility] Other Start: 07-30-2023 Tobacco smoking stat us MIIS Ex-smoker (finding) [facility] Start: 1950 Sex Assigned At Male [facility] Start: 02-12-2025 Sex Male (finding) [facility] Medical Equipment Procedure Code Equipment Code Equipment Origin al Text Equipment Identifier Dates Blood Sugar Diagnostic (Onetouch Ultra Test) strip Start: 02-08-2024 Lancets (Onetouc h Ultrasoft 2 Lancet) 30 gauge misc Start: 01-23-2024 Blood Sugar Diagnostic (Onetouch Ultra Test) strip Start: 02-08-2024 End: 02-08-2024 Blood Sugar Diagnostic (Onetouch Ultra Test) strip Start: 01-23-2024 End: 02-08-2024 Blood Sugar Diagnostic (Onetouch Ultra [...] Notes Aug, Primary hypertension (ICD-10 - I10) [facility] Other 10-23-2023 [facility] Evaluation note* Encounter Date Diagnosis Assessment Notes [...] asymptomatic and easily achieves work > 4METs [facility] Other 10-05-2023 Evaluation note* Encounter Date Diagnosis Assessment Notes Treatment Notes Treatment Clinical Notes Jul, Primary hypertension (ICD-10 - I10) [facility] Other 08-23-2023 Evaluation note* Encounter Date Diagnosis [...] not aware that he needed this repeated [facility] Other [facility]No [facility] Other Evaluation noteNo assessment information available [facility] Work Phone: Evaluation note* Diagnosis Onset Date Resolution Status Admit Date Ascending aorta dilatation acute February 12, 2025 9:50am Elevated cholesterol acute February 12, 2025 9:50am Elevated coronary artery charo cium score acute February 12, 2025 9: 50am Hypertension acute February 12 9:50am Type 2 diabetes mellitus wit h hyperglycemia acute February 12, 2025 9: 50am [facility] Work Phone: Evaluation note* Diagnosis Onset Date Resolution Status Admit Date Ascending aorta dilatation acute July 07, 2025 8:57am Elevated cholesterol acute Jun 8:57am Elevated coronary artery calcium score acute July 07, 2025 8:57am Hypertension acute July 072024 8:57am Medicare annual wellness visit, subsequent acute June 8:57am Screening PSA (prostate specific antigen) acute June 8:57am Type 2 diabetes mellitus wit h hyperglycemia acute July 07, 2025 8:57am [facility] Work Phone: History and physical note Author Latonya Dow [facility] July 30, 2023 11:27am Note Date/Time July 30, 2023 1 1:27am [facility] [address] [place] [address] Gastroenterology H&P Signed Patient: Anthony Castillo MR#: [id number] : 1950 Acct:[id number] Age/Sex: 73 / M Adm Date: 3 Loc: Room: Type: REG WVC Attending Dr: Latonya Dow MD Copies to: Frank Fortino,DO Latonya Dow MD~ Date of Service: 07/30/2023 [...] signed by Latonya Dow MD> 07/30/23 1127 [facility] Work Phone: History general Narrative - Reported* Type Description Date Medical History Paresthesia Medical History Type 2 diabetes mellitus without complications Medical History Essential (primary) hypertension Medical History Hyperlipidemia type II Medical History Lumbar spondylosis Medical History Benign prostatic hyp erplasia with lower urinary tract symptoms Surgical History COLONOSCOPY 2012, 2018 Hospitalization History SEE SURGICAL HX [facility] Other History general Narrative - Reported* Type Description Date Medical History Paresthesia Medical History Type 2 diabetes mellitus without complications Medical History Essential (primary) hypertension Medical History Hyperlipidemia type II Medical History Lumbar spondylosis Medical History Benign prostatic hyp erplasia with lower urinary tract symptoms Surgical History COLONOSCOPY 2012, 2017 Surgical History Colonoscopy (repeat 5 years) Hospitalization History SEE SURGICAL HX [facility] Other Hospital Discharge instructions Additional Instructions DISCHARGE [...] years. -Follow up with PCP. -Office number [phone]. [facility] Work Phone: Reason for referral (narrative)No reason for referral [facility] Work Phone: Summary Purpose Family History Relationship [...] Recorded Date/ Time Advance Directives No January 31 7:09am Reason for Referral Reason Mr. Castillo is being ref erred for screening colonoscopy Diagnosis 1 Screening for colon cancer (Z12.11) Referral Organization [facility] Referring Provider First Name Frank Referring Provider Last Name Fortino Referring Provider Specialty Internal Me dicine Referred Organization [facility] Referred Provider Arsalan Esteves Referred Address [address] [place], [place],[address] Referred Provider Specialty Gastroentero logy Referral Priority [...] Date Diabetes Check Up/Ankle Wound Check Up M ay 2024 9:50am Reason for Visit Admit Date Ascending aorta dilatation February 12, 2025 9:50am Elevated cholesterol February 12, 2025 9:50a m Elevated coronary artery calcium score M ay 2024 9:50am Hypertension February 12, 2025 9:50am Type 2 diabetes mellitus with hyperglyce maddison February 12, 2025 9:50am Chief Complaint Admit Date Wellness July 07, 2025 8:57am Reason for Visit Admit Date Ascending aorta dilatation June 8:57am Elevated cholesterol July 07 8:57am Elevated coronary artery calcium score S eptember 2024 8:57am Hypertension July 07, 2025 8:57am Medicare annual wellness visit, subseque nt July 07, 2025 8:57am Screening PSA (prostate specific antigen ) July 07, 2025 8:57am Type 2 diabetes mellitus with hyperglyce maddison July 07, 2025 8:57am Additional Source Comments (unrecognized sect ion and content) No Status Records FoundNo Status Records FoundNo Status Records FoundNo Status Records Found INFORMATION SOURCE (unrecogn ized section and content) DATE CREATED AUTHOR 05/15/2022 [facility] DATE CREATED AUTHOR AUTHOR'S ORGANIZ ATION 07/13/2023 [facility] DATE CREATED AUTHOR AUTHOR'S ORGANIZ ATION 08/08/2023 [facility] DATE CREATED AUTHOR AUTHOR'S ORGANIZ ATION 06/18/2024 [facility] REASON FOR VISIT (unrecogniz ed section and content) WELLNESSColonoscopyWELLNESSN ew Ordermail ppwBP readingsRefilltest results discussionNo InformationRefillCruise Care Teams (unrecognized sec tion and content) Team Status: Active Member Role Status Dates Frank Mckeon DO Primary Care Provider Active Team Status: Active Member Role Status Dates Frank Mckeon DO Primary Care Provider Active Start: July 03, 2025 Frank Mckeon DO Attending Provider Active Sta rt: July 03, 2025 Team Status: Inactive Member Role Status Dates Frank Mckeon DO Primary Care Provider Active Start: July 07, 2025 End: July 07, 2025 Frank Mckeon DO Attending Provider Active Sta rt: July 07, 2025 End: July 07, 2025 Team Status: Active Member Role Status Aristides Mckeon DO Primary Care Provider Active Team Status: Inactive Member Role Status Aristides Mckeon DO Primary Care Provider Active Latonya Dow MD Attending Provider Active Team Status: Inactive Member Role Status Dates Frank Mckeon DO Primary Care Provide r, Attending Provider Active Start: February 12, 2025 End: February 12, 2025 Team Status: Active Member Role Status Dates Frank Mckeon DO Primary Care Provider Active Start: July 03, 2025 Frank Mckeon DO Attending Provider Active Sta rt: July 03, 2025 Team Status: Inactive Member Role Status Dates Frank Mckeon DO Primary Care Provider Active Start: July 07, 2025 End: July 07, 2025 Frank Mckeon DO Attending Provider Active Sta rt: July 07, 2025 End: July 07, 2025 Goals (unrecognized section and content) Goals [...] BE BASED ON THE PRIMARY CLINICAL RECORDS. [facility]. provides no warranty or guarantee of the accuracy or completeness of information in this document.
--- NOTE | 2025-07-27 09:18 | CT_ITS ---
The [address] [address] Patient Name: AZUCENA LONGO MRN: [id number] date: 1950 Sex: M Assigned Patient Location: CT Current Patient Location: CT Accession/Order Number: [id number] Exam Date: 07/27/2025 09:24 Report Date: 07/27/2025 12:48 At the request of: YULIET MCKEON DO Procedure: CT angio chest CT PULMONARY ANGIOGRAM WITH CONTRAST CLINICAL HISTORY: Follow-up Ascending Aorta Dilation COMPARISON: 07/04/2024 TECHNIQUE: Spiral images were obtained through the chest following intravenous administration of 100 mL of Omnipaque 350. Images were reviewed using both narrow and wide window settings. Sagittal, coronal and 3 D volume-rendered reconstructions were performed and reviewed. This CT exam was performed using one or more following dose reduction techniques: Automated exposure control, adjustment of the mA and/or kV according to patient size, or use of iterative reconstruction technique. FINDINGS: The heart is not enlarged. There is no pericardial effusion. There is continued mild dilatation of the ascending aorta with diameter 4.2 cm. No dissection is noted. There is adequate opacification of the pulmonary arteries. No emboli are identified. No pathologic lymphadenopathy is seen. Degenerative change is present spine. There is scarring at the lung apices. No developing consolidation, effusion or discrete soft tissue nodules are seen. Limited cuts through the upper abdomen show fatty infiltration liver. There are calcified splenic granulomas. Slight adrenal limb thickening is present on the left CT/CT angio chest IMPRESSION: SIMILAR MILD DILATATION OF THE ASCENDING AORTA, WITHOUT DISSECTION. NO CT EVIDENCE OF PULMONARY EMBOLISM. NO ACUTE PULMONARY FINDINGS. Impression dictated by: Ashtyn Sweet M.D. 07/27/2025 12:48 PM Dictation Location: [address] [address] Electronically authenticated by: [id number] Date: 07/27/2025 12:48
== END 2025-07-27 09:13 | disposition home or self-care (01) ==
LOC: CT 09:12
PROVIDERS: PCP Internal Medicine; Visit Provider Internal Medicine
DX: I77.810 Thoracic aortic ectasia (principal)
CPT/HCPCS: 71275; Q9967